=== PATIENT | female | born 1965 | race Caucasian/White ===

== ENCOUNTER 2017-09-05 13:21 | Observation (INO) | payer MEDICAID ==
[~2017-09-05] VITALS: Ht 160 cm; Wt 72.2 kg
[~2017-09-05 13:21] MED LIST: ATOR20TA66 PO; HYDR-3972 PO; HYDR12.5 PO; LOSA50TA37 PO; XYL25J TOP
[2017-09-05 14:01] LABS: BASOPHILS # (AUTO) 0.1 X10'3 (0-0.2); BASOPHILS % (AUTO) 0.6 % (0-1); EOSINOPHILS # (AUTO) 0.3 X10'3 (0-0.9); EOSINOPHILS % (AUTO) 2.9 % (0-6); HEMATOCRIT 43.4 % (35.0-45.0); HEMOGLOBIN 15.2 g/dl (12.0-16.0); LYMPHOCYTES # (AUTO) 2.4 X10'3 (1.1-4.8); LYMPHOCYTES % (AUTO) 24.7 % (21-51); MEAN CORPUSCULAR HEMOGLOBIN 31.7 PG (27.0-31.0); MEAN CORPUSCULAR HGB CONC 34.9 % (33.0-36.5); MEAN CORPUSCULAR VOLUME 90.9 FL (78-98); MEAN PLATELET VOLUME 7.6 FL (7.4-10.4); MONOCYTES # (AUTO) 0.4 X10'3 (0-0.9); MONOCYTES % (AUTO) 4.6 % (2-12); NEUTROPHILS # (AUTO) 6.4 X10'3 (1.8-7.7); NEUTROPHILS % (AUTO) 67.2 % (42-75); PLATELET COUNT 369 X10'3 (140-440); RED BLOOD COUNT 4.78 X10'6 (4.20-5.60); RED CELL DISTRIBUTION WIDTH 13.9 % (11.5-14.5); WHITE BLOOD COUNT 9.6 X10'3 (4.5-11.0)
[2017-09-05 14:16] LABS: ALANINE AMINOTRANSFERASE 28 U/L (12-78); ALBUMIN 3.5 G/DL (3.4-5.0); ALBUMIN/GLOBULIN RATIO 0.8 (1.1-1.5); ALKALINE PHOSPHATASE 86 IU/L (46-116); ANION GAP 8 (8-16); ASPARTATE AMINO TRANSFERASE 9 U/L (10-37); BILIRUBIN,TOTAL 0.9 MG/DL (0.1-1.0); BLOOD UREA NITROGEN 6 MG/DL (7-18); BUN/CREATININE RATIO 7.9 (6.6-38.0); CALCIUM 9.4 MG/DL (8.5-10.1); CHLORIDE 96 MMOL/L (99-107); CREATININE 0.76 MG/DL (0.40-0.90); GLUCOSE 97 MG/DL (70-104); LIPASE 86 U/L (73-393); POTASSIUM 3.3 MMOL/L (3.5-5.1); SODIUM 136 MMOL/L (135-145); TOTAL CARBON DIOXIDE 32.4 MMOL/L (24-32); TOTAL PROTEIN 7.7 G/DL (6.4-8.2); eGFR 80 ML/MIN
[2017-09-05] MEDS ORDERED: iohexol 300mg/ml 100ml inj. ONE (14:44)
[2017-09-05 14:58] LABS: CLARITY,URINE CLEAR (Clear); COLOR,URINE STRAW (Yellow); GLUCOSE, URINE NEGATIVE (Neg); KETONES,URINE NEGATIVE (Neg); LEUKOCYTE ESTERASE ,URINE TRACE (Neg); NITRITES, URINE NEGATIVE (Neg); OCCULT BLOOD,URINE TRACE-INTACT (Neg); PH,URINE 6.5 (4.8-8.0); PROTEIN,URINE NEGATIVE (Neg); UA COLLECTION TYPE CLN CATCH MIDSTREAM; UROBILINOGEN,URINE 0.2 E.U/dL (0.2-1.0)
[2017-09-05 15:05] LABS: BACTERIA,URINE 1+ /HPF (Neg); RBC,URINE 0-2 /HPF (0-2); SQUAMOUS EPITHELIAL CELL,UR MODERATE /LPF (FEW); WBC,URINE 0-4 /HPF (0-4)
[2017-09-05 15:06] LABS: TRANSITIONAL EPI CELLS,URINE FEW /HPF
[2017-09-05] MEDS ORDERED: normal saline 1000ml 1,000 ML IV ONE ×2 (15:45)
[2017-09-05] MEDS ORDERED: sodium chloride 0.45% 1,000 ML IV SCH (17:24)
[2017-09-05] MEDS ORDERED: ondansetron/PF 4mg/2ml inj IV PRN (17:25)
[2017-09-05] MEDS ORDERED: magnesium hydroxide 30ml (MOM) UD suspension PO PRN (17:25)
[2017-09-05] MEDS ORDERED: mag hydrox/Alum hydrox/simeth 30ml oral suspension PO PRN (17:25)
[2017-09-05] MEDS ORDERED: acetaminophen 325mg tablet PO PRN (17:25)
[2017-09-05] MEDS ORDERED: magnesium hydroxide 30ml (MOM) UD suspension PO ONE (17:25)
[2017-09-05] MEDS: ketorolac trometh. 30mg/ml inj. IV SCH ×2 (18:14→20:00)
[2017-09-05] MEDS: HYDROcodone/acetaminophen 5mg/325mg tablet PO PRN ×2 (18:14→23:41)
[2017-09-05] MEDS: heparin, porcine 5000 units/ml vial SQ SCH (19:52)
[2017-09-05 20:30] VITALS: BP 154/73
[2017-09-05] MEDS: ringers solution, lacted 1,000 ML IV SCH (21:19)
[2017-09-05] MEDS: ciprofloxacin lact 400MG/200ML 200 ML IV SCH (22:21)
[2017-09-06] VITALS: BP 96/63
[2017-09-06] MEDS: ketorolac trometh. 30mg/ml inj. IV SCH ×3 (01:45→13:28)
[2017-09-06] MEDS: ringers solution, lacted 1,000 ML IV SCH ×2 (04:52→10:36)
[2017-09-06 06:00] LABS: BASOPHILS # (AUTO) 0.1 X10'3 (0-0.2); BASOPHILS % (AUTO) 1.5 % (0-1); EOSINOPHILS # (AUTO) 0.3 X10'3 (0-0.9); EOSINOPHILS % (AUTO) 4.6 % (0-6); HEMATOCRIT 40.4 % (35.0-45.0); HEMOGLOBIN 14.1 g/dl (12.0-16.0); LYMPHOCYTES # (AUTO) 2.9 X10'3 (1.1-4.8); LYMPHOCYTES % (AUTO) 38.1 % (21-51); MEAN CORPUSCULAR HEMOGLOBIN 31.8 PG (27.0-31.0); MEAN CORPUSCULAR VOLUME 90.7 FL (78-98); MEAN PLATELET VOLUME 7.9 FL (7.4-10.4); MONOCYTES # (AUTO) 0.4 X10'3 (0-0.9); MONOCYTES % (AUTO) 5.5 % (2-12); NEUTROPHILS # (AUTO) 3.8 X10'3 (1.8-7.7); NEUTROPHILS % (AUTO) 50.3 % (42-75); PLATELET COUNT 308 X10'3 (140-440); RED BLOOD COUNT 4.45 X10'6 (4.20-5.60); RED CELL DISTRIBUTION WIDTH 14.4 % (11.5-14.5); WHITE BLOOD COUNT 7.5 X10'3 (4.5-11.0)
[2017-09-06 06:26] LABS: ALBUMIN 3.2 G/DL (3.4-5.0); ANION GAP 7 (8-16); BLOOD UREA NITROGEN 7 MG/DL (7-18); CALCIUM 9.1 MG/DL (8.5-10.1); CHLORIDE 103 MMOL/L (99-107); CREATININE 0.88 MG/DL (0.40-0.90); GLUCOSE 91 MG/DL (70-104); POTASSIUM 3.6 MMOL/L (3.5-5.1); SODIUM 141 MMOL/L (135-145); TOTAL CARBON DIOXIDE 30.6 MMOL/L (24-32); eGFR 67 ML/MIN
[2017-09-06 06:30] VITALS: BP 144/78
[2017-09-06] MEDS: ciprofloxacin lact 400MG/200ML 200 ML IV SCH (07:07)
[2017-09-06] MEDS: heparin, porcine 5000 units/ml vial SQ SCH (07:08)
[2017-09-06] MEDS: HYDROcodone/acetaminophen 5mg/325mg tablet PO PRN (07:12)
[2017-09-06] MEDS ORDERED: losartan 50mg tablet PO SCH (08:00)
[2017-09-06] MEDS ORDERED: magnesium hydroxide 30ml (MOM) UD suspension PO ONE (10:30)
[2017-09-06 11:15] VITALS: BP 120/70
[2017-09-06] MEDS ORDERED: HYDR-569 PO (13:40)
== END 2017-09-06 14:13 | disposition home or self-care (01) ==
LOC: ER 13:21 → ED HOLD 17:29 → MED 3N 19:20
PROVIDERS: ADMIT Surgery; ATTEND Surgery
DX: K59.00 Constipation, unspecified (principal); R10.9 Unspecified abdominal pain; E78.00 Pure hypercholesterolemia, unspecified; I10 Essential (primary) hypertension; K56.7 Ileus, unspecified; J45.909 Unspecified asthma, uncomplicated; G89.18 Other acute postprocedural pain; K91.89 Other postprocedural complications and disorders of digestive system; Z72.0 Tobacco use
CPT/HCPCS: 36415; 74177; 80048; 80053; 81001; 83690; 85025; 87070; 87088; 96361; 96365; 96372; 96375; 96376; 99285; G0378; J0744; J1644; J1885; J7030; J7120; Q9967

== ENCOUNTER 2017-12-09 08:45 | Day surgery (SDC) | payer MEDICAID ==
[~2017-12-09] VITALS: Ht 162.6 cm; Wt 77.3 kg
[~2017-12-09 08:45] MED LIST changes: -ATOR20TA66 PO; -HYDR-3972 PO; +HYDR-569 PO; -XYL25J TOP
[2017-12-09 08:47] VITALS: BP 120/76
[2017-12-09] MEDS ORDERED: HYDR-3965 PO (08:51)
[2017-12-09] MEDS ORDERED: fentaNYL/PF 50MCG/1 ML 2ML syringe ONE (09:09)
[2017-12-09] MEDS ORDERED: MIDAZolam 5mg/5ml vial ONE (09:09)
[2017-12-09 09:52] VITALS: BP 93/56
[2017-12-09 10:02] VITALS: BP 93/56
[2017-12-09 10:12] VITALS: BP 94/57
[2017-12-09 10:17] VITALS: BP 105/62
== END 2017-12-09 10:36 | disposition home or self-care (01) ==
LOC: GI LAB 08:45
PROVIDERS: ATTEND Internal Medicine Gastroenterology
DX: Z08 Encounter for follow-up examination after completed treatment for malignant neoplasm (principal); K62.1 Rectal polyp; K64.8 Other hemorrhoids; K57.30 Diverticulosis of large intestine without perforation or abscess without bleeding; I10 Essential (primary) hypertension; F17.210 Nicotine dependence, cigarettes, uncomplicated; M16.0 Bilateral primary osteoarthritis of hip; M47.816 Spondylosis without myelopathy or radiculopathy, lumbar region; E78.00 Pure hypercholesterolemia, unspecified; G89.29 Other chronic pain; J45.998 Other asthma; Z86.010 Personal history of colon polyps; Z98.0 Intestinal bypass and anastomosis status; Z85.038 Personal history of other malignant neoplasm of large intestine; Z90.49 Acquired absence of other specified parts of digestive tract; Z91.018 Allergy to other foods; Z79.891 Long term (current) use of opiate analgesic; Z79.899 Other long term (current) drug therapy; Z98.890 Other specified postprocedural states
CPT/HCPCS: 45380; 99152; J2250; J3010; J7030; A4620; G0500

== ENCOUNTER 2018-12-22 12:10 | Inpatient (IN) | payer MEDICAID ==
[~2018-12-22] VITALS: Ht 160 cm; Wt 90.9 kg
[~2018-12-22 12:10] MED LIST changes: +HYDR-3965 PO; -HYDR-569 PO; -LOSA50TA37 PO; +LOSA50TA64 PO
[2018-12-22] MEDS ORDERED: LIDOcaine 1% w/epiNEPHrine 1:200,000 30ml vial IM ONE (14:20)
[2018-12-22] MEDS ORDERED: morphine 4 MG/ML inj SYRINge IV ONE (14:20)
[2018-12-22] MEDS ORDERED: vancomycin/NS 1 GM ADD-VANTAGE 250 ML IV ONE (14:20)
[2018-12-22 14:49] LABS: BASOPHILS % (AUTO) 1.2 % (0-1); EOSINOPHILS # (AUTO) 0.1 X10'3 (0-0.9); MEAN PLATELET VOLUME 7.5 FL (7.4-10.4); MONOCYTES # (AUTO) 0.6 X10'3 (0-0.9)
[2018-12-22 14:50] LABS: BASOPHILS # (AUTO) 0.2 X10'3 (0-0.2); HEMATOCRIT 43.2 % (35.0-45.0); HEMOGLOBIN 15.3 g/dl (12.0-16.0); LYMPHOCYTES # (AUTO) 2.6 X10'3 (1.1-4.8); LYMPHOCYTES % (AUTO) 20.7 % (21-51); MEAN CORPUSCULAR HGB CONC 35.4 g/dL (33.0-36.5); MEAN CORPUSCULAR VOLUME 87.5 FL (78-98); MONOCYTES % (AUTO) 5.1 % (2-12); NEUTROPHILS # (AUTO) 9.2 X10'3 (1.8-7.7); PLATELET COUNT 328 X10'3 (140-440); RED BLOOD COUNT 4.94 X10'6 (4.20-5.60); RED CELL DISTRIBUTION WIDTH 13.6 % (11.5-14.5); WHITE BLOOD COUNT 12.7 X10'3 (4.5-11.0)
[2018-12-22 15:01] LABS: ALANINE AMINOTRANSFERASE 21 U/L (12-78); ALBUMIN 3.6 G/DL (3.4-5.0); ALBUMIN/GLOBULIN RATIO 0.8 (1.1-1.5); ALKALINE PHOSPHATASE 103 IU/L (46-116); ANION GAP 8 (8-16); ASPARTATE AMINO TRANSFERASE 9 U/L (10-37); BILIRUBIN,TOTAL 0.5 MG/DL (0.1-1.0); BLOOD UREA NITROGEN 6 MG/DL (7-18); BUN/CREATININE RATIO 7.5 (6.6-38.0); C-REACTIVE PROTEIN 0.83 MG/DL (0.0-0.5); CALCIUM 9.1 MG/DL (8.5-10.1); CHLORIDE 94 MMOL/L (99-107); GLUCOSE 99 MG/DL (70-104); SODIUM 130 MMOL/L (135-145); eGFR 75 ML/MIN
[2018-12-22 15:10] LABS: POTASSIUM 2.9 MMOL/L (3.5-5.1)
[2018-12-22] MEDS ORDERED: potassium Cl 20 mEq SR tablet PO PRN ×2 (16:45)
[2018-12-22] MEDS ORDERED: morphine 2 MG/ML inj. syringe IV PRN (16:45)
[2018-12-22] MEDS ORDERED: magnesium 2GM in 50ml NS 50 ML IV PRN (16:45)
[2018-12-22] MEDS ORDERED: potassium Cl 40MEQ/NS 500ml 500 ML IV PRN (16:45)
[2018-12-22] MEDS: K and/or MAG REPLACEMENT MC SCH (16:45)
[2018-12-22] MEDS ORDERED: potassium CL 10mEq/100ml bag 100 ML IV PRN (16:45)
[2018-12-22] MEDS ORDERED: magnesium 4gm in 100ml NS 100 ML IV PRN (16:45)
[2018-12-22] MEDS ORDERED: magnesium Cl slow-release 64mg tablet PO PRN (16:45)
[2018-12-22] MEDS ORDERED: mag hydrox/Alum hydrox/simeth 30ml oral suspension PO PRN (16:45)
[2018-12-22] MEDS ORDERED: bisacodyl 10mg suppository rectal RC PRN (16:45)
[2018-12-22] MEDS: losartan 50mg tablet PO SCH (16:50)
[2018-12-22] MEDS ORDERED: traMADol 50MG tablet PO PRN (16:50)
[2018-12-22 18:03] LABS: MAGNESIUM 2.1 MG/DL (1.5-2.4)
--- NOTE | 2018-12-22 18:31 | NUR ---
Patient in room . I have received report from Renee HENDERSON and had the opportunity to ask questions and assume patient care.
--- NOTE | 2018-12-22 18:40 | NUR ---
REPORT CALLED TO BEATRIZ DOLAN ON SURGICAL UNIT. PATIENT TAKEN TO FLOOR WITH PORTABLE MONITOR INTACT, IN GOOD CONDITION, ACCOMPANIED BY DAUGHTER.
[2018-12-22] MEDS: potassium Cl 20mEq in NS 1,000 ML IV SCH ×2 (18:41→19:14)
[2018-12-22 19:00] VITALS: BP 169/88
--- NOTE | 2018-12-22 19:00 | NUR ---
Patient arrived at floor via gurney accompanied by nurse and daughter.
[2018-12-22] MEDS: levoFLOXACIN-Levaquin 500mg/D5 100 ML IV SCH (19:15)
[2018-12-22] MEDS: docusate sod 100mg capsule PO SCH (19:16)
[2018-12-22] MEDS: morphine 2 MG/ML inj. syringe IV PRN (20:51)
[2018-12-22] MEDS: VANCOmycin 1250MG/NS 250ml Bag 250 ML IV SCH (22:17)
--- NOTE | 2018-12-22 23:52 | NUR ---
Student documentation: I have reviewed and agree with all interventions, assessments performed and documented by BEATRIZ Silva. Addendum: 12/22/18 at 2353 by Liberty Badillo RN Amended: Links added.
[2018-12-23 00:42] VITALS: BP 107/64
[2018-12-23] MEDS: morphine 2 MG/ML inj. syringe IV PRN ×3 (02:39→21:26)
[2018-12-23] MEDS ORDERED: vancomycin/NS 1 GM ADD-VANTAGE 250 ML IV SCH (03:00)
[2018-12-23 05:02] LABS: BASOPHILS # (AUTO) 0.1 X10'3 (0-0.2); BASOPHILS % (AUTO) 0.8 % (0-1); EOSINOPHILS # (AUTO) 0.1 X10'3 (0-0.9); EOSINOPHILS % (AUTO) 1.7 % (0-6); HEMATOCRIT 37.7 % (35.0-45.0); LYMPHOCYTES # (AUTO) 2.3 X10'3 (1.1-4.8); LYMPHOCYTES % (AUTO) 33.4 % (21-51); MEAN CORPUSCULAR HEMOGLOBIN 30.4 PG (27.0-31.0); MEAN CORPUSCULAR HGB CONC 34.5 g/dL (33.0-36.5); MEAN CORPUSCULAR VOLUME 88.1 FL (78-98); MEAN PLATELET VOLUME 7.8 FL (7.4-10.4); MONOCYTES # (AUTO) 0.5 X10'3 (0-0.9); MONOCYTES % (AUTO) 7.4 % (2-12); NEUTROPHILS # (AUTO) 3.9 X10'3 (1.8-7.7); NEUTROPHILS % (AUTO) 56.7 % (42-75); PLATELET COUNT 306 X10'3 (140-440); RED BLOOD COUNT 4.28 X10'6 (4.20-5.60); RED CELL DISTRIBUTION WIDTH 14.1 % (11.5-14.5); WHITE BLOOD COUNT 6.9 X10'3 (4.5-11.0)
[2018-12-23 05:04] LABS: ALBUMIN 2.7 G/DL (3.4-5.0); ANION GAP 8 (8-16); BLOOD UREA NITROGEN 6 MG/DL (7-18); BUN/CREATININE RATIO 7.6 (6.6-38.0); CALCIUM 8.1 MG/DL (8.5-10.1); CHLORIDE 102 MMOL/L (99-107); CREATININE 0.79 MG/DL (0.40-0.90); GLUCOSE 101 MG/DL (70-104); MAGNESIUM 1.9 MG/DL (1.5-2.4); POTASSIUM 3.5 MMOL/L (3.5-5.1); SODIUM 135 MMOL/L (135-145); TOTAL CARBON DIOXIDE 25.1 MMOL/L (24-32); eGFR 76 ML/MIN
--- NOTE | 2018-12-23 06:24 | NUR ---
Problems reprioritized. Patient report given, questions answered & plan of care reviewed with Ana Maria HENDERSON.
[2018-12-23 07:00] VITALS: BP 138/78
[2018-12-23] MEDS: docusate sod 100mg capsule PO SCH ×2 (08:00→20:00)
[2018-12-23] MEDS: K and/or MAG REPLACEMENT MC SCH (08:00)
[2018-12-23] MEDS: magnesium hydroxide 30ml (MOM) UD suspension PO PRN (08:54)
[2018-12-23] MEDS: losartan 50mg tablet PO SCH (08:57)
[2018-12-23] MEDS: enoxaparin 40mg/0.4ml syringe SUBCUT SCH (08:58)
[2018-12-23] MEDS: nicotine 21mg patch - 24 hr TD SCH (09:00)
[2018-12-23] MEDS: levoFLOXACIN-Levaquin 500mg/D5 100 ML IV SCH (09:15)
[2018-12-23] MEDS: VANCOmycin 1250MG/NS 250ml Bag 250 ML IV SCH ×2 (11:00→22:36)
[2018-12-23] MEDS ORDERED: levoFLOXACIN 500mg tablet PO SCH (11:00)
[2018-12-23 12:00] VITALS: BP 152/83
[2018-12-23] MEDS: potassium Cl 20mEq in NS 1,000 ML IV SCH (13:02)
[2018-12-23] MEDS ORDERED: gadopentetate dimeglumine 10 MMOL/20 ML syringe IV ONE (14:01)
--- NOTE | 2018-12-23 18:30 | NUR ---
Patient in room WES 341. I have received report from OMEGA HENDERSON and had the opportunity to ask questions and assume patient care.
[2018-12-23 20:00] VITALS: BP 156/90
[2018-12-23] MEDS: lactobacillus rhamnosus 10,000 MMU CELLS/CAPSULE PO SCH (21:25)
[2018-12-24] VITALS: BP 140/76
[2018-12-24] MEDS: morphine 2 MG/ML inj. syringe IV PRN ×5 (01:32→19:58)
[2018-12-24 05:16] LABS: BASOPHILS # (AUTO) 0.1 X10'3 (0-0.2); EOSINOPHILS # (AUTO) 0.1 X10'3 (0-0.9); EOSINOPHILS % (AUTO) 1.9 % (0-6); HEMATOCRIT 35.2 % (35.0-45.0); HEMOGLOBIN 12.3 g/dl (12.0-16.0); LYMPHOCYTES # (AUTO) 2.7 X10'3 (1.1-4.8); LYMPHOCYTES % (AUTO) 42.3 % (21-51); MEAN CORPUSCULAR HEMOGLOBIN 31.2 PG (27.0-31.0); MEAN CORPUSCULAR HGB CONC 34.9 g/dL (33.0-36.5); MEAN CORPUSCULAR VOLUME 89.3 FL (78-98); MEAN PLATELET VOLUME 7.9 FL (7.4-10.4); MONOCYTES # (AUTO) 0.4 X10'3 (0-0.9); NEUTROPHILS # (AUTO) 3.1 X10'3 (1.8-7.7); NEUTROPHILS % (AUTO) 48.8 % (42-75); PLATELET COUNT 276 X10'3 (140-440); RED BLOOD COUNT 3.94 X10'6 (4.20-5.60); RED CELL DISTRIBUTION WIDTH 14.3 % (11.5-14.5); WHITE BLOOD COUNT 6.4 X10'3 (4.5-11.0)
[2018-12-24] MEDS: potassium Cl 20mEq in NS 1,000 ML IV SCH ×2 (05:38→17:38)
[2018-12-24 05:39] LABS: ALBUMIN 2.6 G/DL (3.4-5.0); ANION GAP 7 (8-16); BLOOD UREA NITROGEN 7 MG/DL (7-18); BUN/CREATININE RATIO 8.3 (6.6-38.0); CHLORIDE 105 MMOL/L (99-107); CREATININE 0.84 MG/DL (0.40-0.90); GLUCOSE 89 MG/DL (70-104); MAGNESIUM 1.9 MG/DL (1.5-2.4); POTASSIUM 3.8 MMOL/L (3.5-5.1); SODIUM 136 MMOL/L (135-145); TOTAL CARBON DIOXIDE 23.6 MMOL/L (24-32); eGFR 71 ML/MIN
--- NOTE | 2018-12-24 06:24 | NUR ---
Problems reprioritized. Patient report given, questions answered & plan of care reviewed with MIKALA HENDERSON.
[2018-12-24] MEDS: K and/or MAG REPLACEMENT MC SCH (06:37)
[2018-12-24 07:00] VITALS: BP 114/68
--- NOTE | 2018-12-24 07:00 | NUR ---
Patient in room WES 341. I have received report from CALLUM and had the opportunity to ask questions and assume patient care. Addendum: 12/24/18 at 0915 by Charleen Kumari RN Amended: Links added.
[2018-12-24] MEDS: docusate sod 100mg capsule PO SCH ×2 (07:09→20:00)
[2018-12-24] MEDS: enoxaparin 40mg/0.4ml syringe SUBCUT SCH (07:20)
[2018-12-24] MEDS: magnesium hydroxide 30ml (MOM) UD suspension PO PRN (07:20)
[2018-12-24] MEDS: losartan 50mg tablet PO SCH (07:20)
[2018-12-24] MEDS: lactobacillus rhamnosus 10,000 MMU CELLS/CAPSULE PO SCH ×2 (07:20→20:01)
[2018-12-24] MEDS: nicotine 21mg patch - 24 hr TD SCH ×2 (07:20→08:00)
[2018-12-24] MEDS ORDERED: levoFLOXACIN-Levaquin 500mg/D5 100 ML IV SCH (08:00)
[2018-12-24] MEDS ORDERED: VANCOMYCIN LEVEL IV ONE (09:30)
--- NOTE | 2018-12-24 10:03 | NUR ---
Report to Angela HENDERSON. Addendum: 12/24/18 at 1004 by Charleen Kumari RN Amended: Links added.
[2018-12-24] MEDS ORDERED: levoFLOXACIN 500mg tablet PO SCH (11:00)
[2018-12-24] MEDS: VANCOmycin 1250MG/NS 250ml Bag 250 ML IV SCH ×2 (11:17→21:58)
[2018-12-24] MEDS: HYDROchlorothiazide 12.5mg capsule PO SCH (11:25)
[2018-12-24 12:03] VITALS: BP 120/85
[2018-12-24] MEDS: acetaminophen 325mg tablet PO PRN ×2 (13:07→20:01)
--- NOTE | 2018-12-24 13:39 | NUR ---
RECOMMEND: 1. Daily bathing with no rinse skin cleanser. 2. Cream/Lotion to be applied to skin after bathing. 3. Zulay care Q shift and prn soiling followed by with Barrier Cream. 4. Turn patient Q 1-2 hrs and reposition with pillows. 5. Float heels to offload pressure. Right 5th metatarsal head surgical wound; Cleanse with wound cleanser, rinse with saline, lightly pack with 1/4 inch iodaform packing strip, cover with dry gauze and secure with gauze roll DAILY and PRN soilage or saturation. Addendum: 12/24/18 at 1341 by Long Sánchez RN Amended: Links added.
[2018-12-24 18:00] VITALS: BP 150/83
--- NOTE | 2018-12-24 18:20 | NUR ---
Patient in room WES 341. I have received report from Juan Miller and had the opportunity to ask questions and assume patient care.
[2018-12-25] VITALS: BP 155/78
[2018-12-25] MEDS: morphine 2 MG/ML inj. syringe IV PRN ×4 (00:10→21:44)
[2018-12-25] MEDS: potassium Cl 20mEq in NS 1,000 ML IV SCH (03:00)
[2018-12-25] MEDS: acetaminophen 325mg tablet PO PRN ×3 (03:00→20:14)
--- NOTE | 2018-12-25 06:28 | NUR ---
Problems reprioritized. Patient report given, questions answered & plan of care reviewed with BEATRIZ Dexter.
[2018-12-25 07:00] VITALS: BP 155/77
[2018-12-25] MEDS: K and/or MAG REPLACEMENT MC SCH (08:00)
[2018-12-25] MEDS: lactobacillus rhamnosus 10,000 MMU CELLS/CAPSULE PO SCH ×2 (08:43→20:00)
[2018-12-25] MEDS: docusate sod 100mg capsule PO SCH ×2 (08:45→20:00)
[2018-12-25] MEDS: losartan 50mg tablet PO SCH (08:45)
[2018-12-25] MEDS: HYDROchlorothiazide 12.5mg capsule PO SCH (08:46)
[2018-12-25] MEDS: enoxaparin 40mg/0.4ml syringe SUBCUT SCH (08:47)
[2018-12-25] MEDS: nicotine 21mg patch - 24 hr TD SCH (08:48)
[2018-12-25 09:13] LABS: BASOPHILS # (AUTO) 0.1 X10'3 (0-0.2); BASOPHILS % (AUTO) 1.5 % (0-1); EOSINOPHILS # (AUTO) 0.1 X10'3 (0-0.9); EOSINOPHILS % (AUTO) 2.4 % (0-6); HEMATOCRIT 38.7 % (35.0-45.0); HEMOGLOBIN 13.2 g/dl (12.0-16.0); LYMPHOCYTES # (AUTO) 2.2 X10'3 (1.1-4.8); LYMPHOCYTES % (AUTO) 38.2 % (21-51); MEAN CORPUSCULAR HEMOGLOBIN 30.5 PG (27.0-31.0); MEAN CORPUSCULAR HGB CONC 34.2 g/dL (33.0-36.5); MEAN CORPUSCULAR VOLUME 89.2 FL (78-98); MONOCYTES # (AUTO) 0.3 X10'3 (0-0.9); MONOCYTES % (AUTO) 4.9 % (2-12); NEUTROPHILS # (AUTO) 3.1 X10'3 (1.8-7.7); PLATELET COUNT 281 X10'3 (140-440); RED BLOOD COUNT 4.34 X10'6 (4.20-5.60); RED CELL DISTRIBUTION WIDTH 14.1 % (11.5-14.5); WHITE BLOOD COUNT 5.8 X10'3 (4.5-11.0)
[2018-12-25 09:30] LABS: ALBUMIN 3.2 G/DL (3.4-5.0); ANION GAP 8 (8-16); BLOOD UREA NITROGEN 8 MG/DL (7-18); BUN/CREATININE RATIO 8.5 (6.6-38.0); CALCIUM 9.6 MG/DL (8.5-10.1); CHLORIDE 105 MMOL/L (99-107); CREATININE 0.94 MG/DL (0.40-0.90); GLUCOSE 125 MG/DL (70-104); POTASSIUM 3.9 MMOL/L (3.5-5.1); SODIUM 135 MMOL/L (135-145); TOTAL CARBON DIOXIDE 21.6 MMOL/L (24-32); eGFR 62 ML/MIN
[2018-12-25] MEDS: VANCOmycin 1250MG/NS 250ml Bag 250 ML IV SCH ×2 (10:00→10:57)
[2018-12-25 11:26] VITALS: BP 171/94
--- NOTE | 2018-12-25 11:27 | NUR ---
MD aware of 171/94 Bp. New order to SL pt. fluids and continue to monitor pt. BP
[2018-12-25] MEDS ORDERED: ethyl chloride 103.5ml spray TP PRN (11:30)
[2018-12-25] MEDS ORDERED: ACET-3068 PO (14:25)
--- NOTE | 2018-12-25 15:01 | NUR ---
PAGER ID: [phone] MESSAGE: [phone] YAKOV HEMPHILL ORDERED PT EVAL FOR WALKER. CANE AND SCOOTER NOT APPROVED BY INSURANCE. DIET CONSULT FOR WOUND. [place] STATES STILL WAITING APPROVAL FOR ATB SO DISCHARGE POSTPONED AT THIS MOMENT. ETELVINA 1500
[2018-12-25 16:30] VITALS: BP 200/97
--- NOTE | 2018-12-25 16:56 | NUR ---
PAGER ID: [phone] MESSAGE: [phone] Holly Rivas Pt. met with pt. Needs prescription for scooter to be able to rent. Guerita [phone]
[2018-12-25 18:00] VITALS: BP 187/94
--- NOTE | 2018-12-25 18:04 | NUR ---
MD notified about BP. No tele calls. pt. asymptomatic. stated better to give the pt. some time for BP to come down. He is thinking the high BP is from fluids. Will pass on in report and continue to monitor on my shift.
--- NOTE | 2018-12-25 19:00 | NUR ---
Patient in room WES 341. I have received report from BEATRIZ Dexter and had the opportunity to ask questions and assume patient care.
--- NOTE | 2018-12-25 19:17 | NUR ---
Missed dose of Vancomycin r/t multiple procedures in room and pt. showering. Pt.'s BP also 200/ 97 r/t fluid overload. Called Alva to clarify what to do with missed dose. Alva did not advice holding ABT. dose due to fluid overload. Stated to call pharmacy to see what to do about missed dose. Pharmacy called, they suggested giving the pt. her 10 o'clock dose of Vanco early. Will pass on in report.
--- NOTE | 2018-12-25 22:24 | NUR ---
Patient discharged home with d/c paperwork. Educated on wound and medications, f/u with Dr. Pierce. Pt will call. Wheeled out with all belongings, father driving pt home.
== END 2018-12-25 22:15 | disposition home or self-care (01) | DRG 721 ==
LOC: ER 12:10 → SUR 3N 19:05 → CMPBEDREQ 19:41
PROVIDERS: ADMIT Internal Medicine; ATTEND Family Medicine
PROC: 0Y9M0ZZ Drainage of Right Foot, Open Approach (ICD-10-PCS; principal; 2018-12-22)
PROC: BQ3DYZZ Magnetic Resonance Imaging (MRI) of Right Lower Leg using Other Contrast (ICD-10-PCS; 2018-12-22)
PROC: 02HV33Z Insertion of Infusion Device into Superior Vena Cava, Percutaneous Approach (ICD-10-PCS; 2018-12-25)
PROC: 4A02X4A Measurement of Cardiac Electrical Activity, Guidance, External Approach (ICD-10-PCS; 2018-12-25)
PROC: B548ZZA Ultrasonography of Superior Vena Cava, Guidance (ICD-10-PCS; 2018-12-25)
DX: T81.49XA Infection following a procedure, other surgical site, initial encounter (principal); E87.1 Hypo-osmolality and hyponatremia; L03.115 Cellulitis of right lower limb; E87.6 Hypokalemia; I10 Essential (primary) hypertension; J45.909 Unspecified asthma, uncomplicated; F17.210 Nicotine dependence, cigarettes, uncomplicated; Z60.2 Problems related to living alone; L02.611 Cutaneous abscess of right foot; M86.8X7 Other osteomyelitis, ankle and foot; G89.29 Other chronic pain; Y83.8 Other surgical procedures as the cause of abnormal reaction of the patient, or of later complication, without mention of misadventure at the time of the procedure; Z88.5 Allergy status to narcotic agent; Z91.018 Allergy to other foods; Z71.6 Tobacco abuse counseling; Z79.899 Other long term (current) drug therapy; Y92.89 Other specified places as the place of occurrence of the external cause
CPT/HCPCS: 10060; 36415; 36569; 71045; 73630; 73723; 76937; 80048; 80053; 80202; 83735; 85025; 85651; 86140; 87040; 87070; 96365; 96375; 97116; 97162; 97530; 99285; A9579; G0378; J1650; J1956; J2270; J3370; J3490

== ENCOUNTER 2018-12-29 09:00 | Day surgery (SDC) | payer MEDICAID ==
[~2018-12-29 09:00] MED LIST changes: +ACET-3068 PO; -HYDR-3965 PO
[2018-12-29] MEDS ORDERED: LIDOcaine/PRILOcaine 5gm cream TP ONE (09:37)
[2018-12-29] MEDS ORDERED: HYDR-4353 PO (09:56)
[2018-12-29] MEDS ORDERED: VANC1VIA21 IV (09:56)
[2018-12-29] MEDS ORDERED: CETI-102 PO (09:56)
--- NOTE | 2018-12-29 11:00 | NUR ---
Patient arrived with knee scooter from [facility] and was admitted to outpatient wound care for physician visit with Joye Bowman MD. Dressing removed, wound cleansed. New patient assessment completed with review of patient's medical history and current medications. 1000 - Dr. Bowman at bedside accompanied by RN. Wound assessed, time out performed by MD/RN. Wound debrided as detailed in the physician progress/procedure note. Plan of care discussed with patient. Dressings placed per MD orders. Patient instructed on the signs and symptoms of infection and to call the Wound Center if any occur or to go to the ED if we are closed: Increased pain in wound Increase in drainage from the wound Redness in the skin surrounding the wound Bleeding from the wound Temperature of 101 or greater Patient instructed that the weight of their body puts a large amount of pressure on their wounds. This pressure keeps the new tissue from growing and inhibits new blood vessels from forming. Explained that, if they continue to bear weight on a body part that has a wound, the time it takes to heal the wound increases, the wound may get worse or the wound may not heal at all. Patient verbalized understanding of all discharge instructions and plan of care and exited using knee scooter independently out to [facility] in stable condition with no sign or symptom of distress at time of discharge.
== END 2018-12-29 10:54 | disposition home or self-care (01) ==
LOC: WOUND CARE 09:00
PROVIDERS: ATTEND Surgery
DX: T81.89XD Other complications of procedures, not elsewhere classified, subsequent encounter (principal); L97.514 Non-pressure chronic ulcer of other part of right foot with necrosis of bone; M86.171 Other acute osteomyelitis, right ankle and foot; J44.9 Chronic obstructive pulmonary disease, unspecified; I10 Essential (primary) hypertension; I73.9 Peripheral vascular disease, unspecified; E87.6 Hypokalemia; E78.00 Pure hypercholesterolemia, unspecified; E78.5 Hyperlipidemia, unspecified; F10.10 Alcohol abuse, uncomplicated; F17.210 Nicotine dependence, cigarettes, uncomplicated; F19.10 Other psychoactive substance abuse, uncomplicated; Z85.038 Personal history of other malignant neoplasm of large intestine; Z85.828 Personal history of other malignant neoplasm of skin; Z68.31 Body mass index [BMI] 31.0-31.9, adult; Y83.8 Other surgical procedures as the cause of abnormal reaction of the patient, or of later complication, without mention of misadventure at the time of the procedure
CPT/HCPCS: 97597; A6021; A6206; A6212; A6446

== ENCOUNTER 2019-01-05 09:00 | Day surgery (SDC) | payer MEDICAID ==
[~2019-01-05 09:00] MED LIST changes: -ACET-3068 PO; +CETI-102 PO; +HYDR-4353 PO; +VANC1VIA21 IV
--- NOTE | 2019-01-05 14:00 | NUR ---
Patient ambulated independently from [facility] and was admitted to outpatient wound care for physician visit with Joey Bowman MD. Dressing removed, wound cleansed and lidocaine applied per order. Patient assessed for changes in conditions, medications and medical history. Dr. Bowman at bedside accompanied by RN. Wound assessed, time out performed by MD/RN. Wound debrided as detailed in the physician progress/procedure note. Plan of care discussed with patient. Dressings placed per MD orders. Patient instructed on the signs and symptoms of infection and to call the Wound Center if any occur or to go to the ED if we are closed: Increased pain in wound Increase in drainage from the wound Redness in the skin surrounding the wound Bleeding from the wound Temperature of 101 or greater Patient instructed that the weight of their body puts a large amount of pressure on their wounds. This pressure keeps the new tissue from growing and inhibits new blood vessels from forming. Explained that, if they continue to bear weight on a body part that has a wound, the time it takes to heal the wound increases, the wound may get worse or the wound may not heal at all. Patient verbalized understanding of all discharge instructions and plan of care and ambulated independently out to [facility] in stable condition with no sign or symptom of distress at time of discharge. Addendum: 01/05/19 at 1401 by Elen Sousa RN Amended: Links added.
== END 2019-01-05 10:57 | disposition home or self-care (01) ==
LOC: WOUND CARE 09:00
PROVIDERS: ATTEND Surgery
DX: T81.89XD Other complications of procedures, not elsewhere classified, subsequent encounter (principal); L97.514 Non-pressure chronic ulcer of other part of right foot with necrosis of bone; M86.171 Other acute osteomyelitis, right ankle and foot; J44.9 Chronic obstructive pulmonary disease, unspecified; I10 Essential (primary) hypertension; I73.9 Peripheral vascular disease, unspecified; E87.6 Hypokalemia; E78.00 Pure hypercholesterolemia, unspecified; E78.5 Hyperlipidemia, unspecified; F10.10 Alcohol abuse, uncomplicated; F17.210 Nicotine dependence, cigarettes, uncomplicated; F19.10 Other psychoactive substance abuse, uncomplicated; Z85.038 Personal history of other malignant neoplasm of large intestine; Z85.828 Personal history of other malignant neoplasm of skin; Z68.31 Body mass index [BMI] 31.0-31.9, adult; Y83.8 Other surgical procedures as the cause of abnormal reaction of the patient, or of later complication, without mention of misadventure at the time of the procedure
CPT/HCPCS: 97597; A6209; A6021; A6206; A6446

== ENCOUNTER 2019-01-12 08:35 | Day surgery (SDC) | payer MEDICAID ==
[2019-01-12] MEDS ORDERED: LIDOcaine/PRILOcaine 5gm cream TP ONE (09:45)
--- NOTE | 2019-01-12 14:26 | NUR ---
Patient arrived safely into [facility] via scooter. Patient admitted to outpatient wound care clinic for physician visit with Joey Bowman MD. Dressing removed, wound cleansed and Emla cream applied per order. Patient assessed for changes in conditions, medications and medical history. Dr. Bowman at bedside accompanied by RN. Wound assessed, time out performed by MD/RN. Wound debrided as detailed in the physician progress/procedure note. Plan of care discussed with patient. Dressings placed per MD orders. Patient instructed on the signs and symptoms of infection and to call the Wound Center if any occur or to go to the ED if we are closed: Increased pain in wound Increase in drainage from the wound Redness in the skin surrounding the wound Bleeding from the wound Temperature of 101 or greater Patient instructed that the weight of their body puts a large amount of pressure on their wounds. This pressure keeps the new tissue from growing and inhibits new blood vessels from forming. Explained that, if they continue to bear weight on a body part that has a wound, the time it takes to heal the wound increases, the wound may get worse or the wound may not heal at all. Patient verbalized understanding of all discharge instructions and plan of care and ambulated independently out to [facility] in stable condition with no sign or symptom of distress at time of discharge. Addendum: 01/12/19 at 1428 by Elen Sousa RN Amended: Links added.
== END 2019-01-12 10:57 | disposition home or self-care (01) ==
LOC: WOUND CARE 08:35
PROVIDERS: ATTEND Surgery
DX: T81.89XD Other complications of procedures, not elsewhere classified, subsequent encounter (principal); L97.514 Non-pressure chronic ulcer of other part of right foot with necrosis of bone; M86.171 Other acute osteomyelitis, right ankle and foot; J44.9 Chronic obstructive pulmonary disease, unspecified; I10 Essential (primary) hypertension; I73.9 Peripheral vascular disease, unspecified; E87.6 Hypokalemia; E78.00 Pure hypercholesterolemia, unspecified; E78.5 Hyperlipidemia, unspecified; M86.8X7 Other osteomyelitis, ankle and foot; F10.10 Alcohol abuse, uncomplicated; F17.210 Nicotine dependence, cigarettes, uncomplicated; F19.10 Other psychoactive substance abuse, uncomplicated; Z85.038 Personal history of other malignant neoplasm of large intestine; Z85.828 Personal history of other malignant neoplasm of skin; Z68.31 Body mass index [BMI] 31.0-31.9, adult; Y83.8 Other surgical procedures as the cause of abnormal reaction of the patient, or of later complication, without mention of misadventure at the time of the procedure
CPT/HCPCS: 97597; A6209; A6222; A6021; A6206; A6446

== ENCOUNTER 2019-03-10 14:22 | Emergency (ER) | payer MEDICAID ==
[~2019-03-10] VITALS: Ht 160 cm; Wt 92.0 kg
[2019-03-10 15:17] LABS: BASOPHILS # (AUTO) 0.1 X10'3 (0-0.2); EOSINOPHILS # (AUTO) 0.1 X10'3 (0-0.9); HEMOGLOBIN 15.2 g/dl (12.0-16.0); LYMPHOCYTES # (AUTO) 2.8 X10'3 (1.1-4.8); NEUTROPHILS # (AUTO) 6.2 X10'3 (1.8-7.7)
[2019-03-10 15:19] LABS: HEMATOCRIT 42.8 % (35.0-45.0); LYMPHOCYTES % (AUTO) 28.5 % (21-51); MEAN CORPUSCULAR HEMOGLOBIN 31.5 PG (27.0-31.0); MEAN CORPUSCULAR HGB CONC 35.6 g/dL (33.0-36.5); MEAN CORPUSCULAR VOLUME 88.7 FL (78-98); MEAN PLATELET VOLUME 7.5 FL (7.4-10.4); MONOCYTES # (AUTO) 0.6 X10'3 (0-0.9); NEUTROPHILS % (AUTO) 63.5 % (42-75); PLATELET COUNT 362 X10'3 (140-440); RED BLOOD COUNT 4.83 X10'6 (4.20-5.60); RED CELL DISTRIBUTION WIDTH 14.1 % (11.5-14.5); WHITE BLOOD COUNT 9.7 X10'3 (4.5-11.0)
[2019-03-10 15:33] LABS: PARTIAL THROMBOPLASTIN TIME 31 SECONDS (22-32)
[2019-03-10 15:38] LABS: ALANINE AMINOTRANSFERASE 57 U/L (12-78); ALBUMIN 3.5 G/DL (3.4-5.0); ALBUMIN/GLOBULIN RATIO 0.8 (1.1-1.5); ALKALINE PHOSPHATASE 89 IU/L (46-116); ANION GAP 11 (8-16); ASPARTATE AMINO TRANSFERASE 14 U/L (10-37); BILIRUBIN,TOTAL 0.7 MG/DL (0.1-1.0); BLOOD UREA NITROGEN 4 MG/DL (7-18); BUN/CREATININE RATIO 4.9 (6.6-38.0); CHLORIDE 96 MMOL/L (99-107); CREATININE 0.81 MG/DL (0.40-0.90); GLUCOSE 97 MG/DL (70-104); POTASSIUM 3.3 MMOL/L (3.5-5.1); SODIUM 133 MMOL/L (135-145); TOTAL PROTEIN 7.7 G/DL (6.4-8.2); eGFR 74 ML/MIN
[2019-03-10 17:49] VITALS: BP 119/47
== END 2019-03-10 17:54 | disposition home or self-care (01) ==
LOC: ER 14:23
DX: R42 Dizziness and giddiness (principal); I10 Essential (primary) hypertension; J45.909 Unspecified asthma, uncomplicated; G89.29 Other chronic pain; F17.200 Nicotine dependence, unspecified, uncomplicated; Z98.890 Other specified postprocedural states; Z90.89 Acquired absence of other organs; Z91.018 Allergy to other foods; Z88.5 Allergy status to narcotic agent; Z79.899 Other long term (current) drug therapy
CPT/HCPCS: 36415; 71045; 80053; 83605; 84145; 85025; 85610; 85730; 87040; 93005; 99284

== ENCOUNTER 2019-03-18 08:50 | Day surgery (SDC) | payer MEDICAID ==
[2019-03-18] MEDS ORDERED: LIDOcaine 2% 5ml jelly ONE (09:23)
== END 2019-03-18 10:09 | disposition home or self-care (01) ==
LOC: WOUND CARE 08:50
PROVIDERS: ATTEND Surgery
DX: T81.89XD Other complications of procedures, not elsewhere classified, subsequent encounter (principal); L97.511 Non-pressure chronic ulcer of other part of right foot limited to breakdown of skin; I10 Essential (primary) hypertension; G89.29 Other chronic pain; J45.909 Unspecified asthma, uncomplicated; F17.200 Nicotine dependence, unspecified, uncomplicated; Z79.899 Other long term (current) drug therapy; Z90.89 Acquired absence of other organs; Z98.890 Other specified postprocedural states; Y83.8 Other surgical procedures as the cause of abnormal reaction of the patient, or of later complication, without mention of misadventure at the time of the procedure
CPT/HCPCS: 97597; A4663

== ENCOUNTER 2019-04-01 09:00 | Outpatient (CLI) | payer MEDICAID | END 2019-04-01 10:47 | disposition home or self-care (01) | LOC: WOUND CARE 09:00 → EDSTATUS 09:00 → WOUND CARE 10:47 | PROVIDERS: ATTEND Surgery | DX: T81.89XD Other complications of procedures, not elsewhere classified, subsequent encounter (principal); L97.511 Non-pressure chronic ulcer of other part of right foot limited to breakdown of skin; I10 Essential (primary) hypertension; G89.29 Other chronic pain; J45.909 Unspecified asthma, uncomplicated; F17.200 Nicotine dependence, unspecified, uncomplicated; Z79.899 Other long term (current) drug therapy; Z90.89 Acquired absence of other organs; Z98.890 Other specified postprocedural states; Y83.8 Other surgical procedures as the cause of abnormal reaction of the patient, or of later complication, without mention of misadventure at the time of the procedure | CPT/HCPCS: A4663; G0463 ==

== ENCOUNTER 2019-07-06 09:48 | Emergency (ER) | payer MEDICAID ==
[~2019-07-06] VITALS: Ht 160 cm; Wt 105.0 kg
[2019-07-06 09:56] VITALS: BP 169/95
[2019-07-06 10:56] LABS: CLARITY,URINE CLEAR (Clear); COLOR,URINE STRAW (Yellow); GLUCOSE, URINE NEGATIVE (Neg); KETONES,URINE NEGATIVE (Neg); LEUKOCYTE ESTERASE ,URINE NEGATIVE (Neg); NITRITES, URINE NEGATIVE (Neg); OCCULT BLOOD,URINE TRACE-LYSED (Neg); PH,URINE 7.5 (4.8-8.0); PROTEIN,URINE NEGATIVE (Neg); UROBILINOGEN,URINE 0.2 E.U/dL (0.2-1.0)
[2019-07-06 11:02] LABS: SQUAMOUS EPITHELIAL CELL,UR FEW /LPF (FEW); UA COLLECTION TYPE NON-SPECIFIED
[2019-07-06 11:03] LABS: BACTERIA,URINE FEW /HPF (Neg); MUCUS STRANDS NONE SEEN /LPF (Neg); RBC,URINE 0-2 /HPF (0-2); WBC,URINE 0-4 /HPF (0-4)
== END 2019-07-06 12:48 | disposition home or self-care (01) ==
LOC: ER 09:49
DX: R07.89 Other chest pain (principal); R05 Cough; Z98.890 Other specified postprocedural states; Z91.018 Allergy to other foods; Z88.5 Allergy status to narcotic agent; Z79.2 Long term (current) use of antibiotics; Z79.899 Other long term (current) drug therapy
CPT/HCPCS: 71101; 81001; 99284

== ENCOUNTER 2019-07-08 12:59 | Emergency (ER) | payer MEDICAID ==
[~2019-07-08] VITALS: Ht 160 cm; Wt 94.0 kg
[2019-07-08 13:51] LABS: BASOPHILS # (AUTO) 0.2 X10'3 (0-0.2); BASOPHILS % (AUTO) 1.4 % (0-1); EOSINOPHILS # (AUTO) 0.1 X10'3 (0-0.9); EOSINOPHILS % (AUTO) 0.7 % (0-6); HEMATOCRIT 42.7 % (35.0-45.0); LYMPHOCYTES # (AUTO) 2.5 X10'3 (1.1-4.8); LYMPHOCYTES % (AUTO) 23.4 % (21-51); MEAN CORPUSCULAR HEMOGLOBIN 31.7 PG (27.0-31.0); MEAN CORPUSCULAR HGB CONC 35.1 g/dL (33.0-36.5); MEAN CORPUSCULAR VOLUME 90.3 FL (78-98); MEAN PLATELET VOLUME 7.5 FL (7.4-10.4); MONOCYTES # (AUTO) 0.5 X10'3 (0-0.9); MONOCYTES % (AUTO) 4.5 % (2-12); NEUTROPHILS # (AUTO) 7.6 X10'3 (1.8-7.7); PLATELET COUNT 337 X10'3 (140-440); RED BLOOD COUNT 4.72 X10'6 (4.20-5.60); RED CELL DISTRIBUTION WIDTH 14.1 % (11.5-14.5); WHITE BLOOD COUNT 10.8 X10'3 (4.5-11.0)
[2019-07-08 14:07] LABS: ALANINE AMINOTRANSFERASE 38 U/L (12-78); ALBUMIN 3.7 G/DL (3.4-5.0); ALBUMIN/GLOBULIN RATIO 0.9 (1.1-1.5); ALKALINE PHOSPHATASE 89 IU/L (46-116); ANION GAP 6 (8-16); ASPARTATE AMINO TRANSFERASE 13 U/L (10-37); BILIRUBIN,TOTAL 0.8 MG/DL (0.1-1.0); BLOOD UREA NITROGEN 6 MG/DL (7-18); BUN/CREATININE RATIO 6.8 (6.6-38.0); CALCIUM 9.2 MG/DL (8.5-10.1); CHLORIDE 99 MMOL/L (99-107); CREATININE 0.88 MG/DL (0.40-0.90); GLUCOSE 91 MG/DL (70-104); LIPASE 82 U/L (73-393); SODIUM 134 MMOL/L (135-145); TOTAL CARBON DIOXIDE 29.5 MMOL/L (24-32); TOTAL PROTEIN 7.6 G/DL (6.4-8.2); eGFR 67 ML/MIN
[2019-07-08 14:47] LABS: CLARITY,URINE SLIGHTLY CLOUDY (Clear); COLOR,URINE YELLOW (Yellow); GLUCOSE, URINE NEGATIVE (Neg); KETONES,URINE NEGATIVE (Neg); LEUKOCYTE ESTERASE ,URINE NEGATIVE (Neg); NITRITES, URINE NEGATIVE (Neg); OCCULT BLOOD,URINE TRACE-INTACT (Neg); PH,URINE 7.5 (4.8-8.0); PROTEIN,URINE NEGATIVE (Neg); UROBILINOGEN,URINE 0.2 E.U/dL (0.2-1.0)
[2019-07-08 14:50] LABS: UA COLLECTION TYPE NON-SPECIFIED
[2019-07-08 14:53] LABS: SQUAMOUS EPITHELIAL CELL,UR FEW /LPF (FEW)
[2019-07-08 14:54] LABS: BACTERIA,URINE FEW /HPF (Neg); RBC,URINE 0-2 /HPF (0-2); WBC,URINE 0-4 /HPF (0-4)
[2019-07-08 15:44] VITALS: BP 146/89
== END 2019-07-08 16:24 | disposition home or self-care (01) ==
LOC: ER 12:59
DX: R10.12 Left upper quadrant pain (principal); R05 Cough; I10 Essential (primary) hypertension; J45.909 Unspecified asthma, uncomplicated; G89.29 Other chronic pain; F10.99 Alcohol use, unspecified with unspecified alcohol-induced disorder; Z90.49 Acquired absence of other specified parts of digestive tract; Z98.890 Other specified postprocedural states; Z91.018 Allergy to other foods; Z88.5 Allergy status to narcotic agent; Z79.899 Other long term (current) drug therapy; Y90.9 Presence of alcohol in blood, level not specified
CPT/HCPCS: 36415; 74176; 80053; 81001; 83690; 85025; 99284

== ENCOUNTER 2019-11-20 15:15 | Observation (INO) | payer MEDICAID ==
[~2019-11-20] VITALS: Ht 160 cm; Wt 95.0 kg
[~2019-11-20 15:15] MED LIST changes: -CETI-102 PO; +CETI-90 PO
[2019-11-20] MEDS ORDERED: normal saline 1000ML IV soln IVB ONE (16:25)
[2019-11-20] MEDS ORDERED: ondansetron/PF 4mg/2ml inj IV ONE (16:25)
--- NOTE | 2019-11-20 16:31 | NUR ---
spoke with poison control regarding pt spaying house with bug spay and c/o cp, cough, sore throat, and dizzines. they informed RN lung irritant is expected, treat with supportive treatment such as steroids and breathing treatment. CP is not expected, ekg is reccomended.
[2019-11-20 16:49] LABS: BASOPHILS # (AUTO) 0.2 X10'3 (0-0.2); BASOPHILS % (AUTO) 1.1 % (0-1); EOSINOPHILS % (AUTO) 0.1 % (0-6); HEMATOCRIT 40.1 % (35.0-45.0); HEMOGLOBIN 14.2 g/dl (12.0-16.0); LYMPHOCYTES # (AUTO) 1.5 X10'3 (1.1-4.8); LYMPHOCYTES % (AUTO) 11.5 % (21-51); MEAN CORPUSCULAR HEMOGLOBIN 31.2 PG (27.0-31.0); MEAN CORPUSCULAR HGB CONC 35.4 g/dL (33.0-36.5); MEAN CORPUSCULAR VOLUME 88.1 FL (78-98); MEAN PLATELET VOLUME 7.4 FL (7.4-10.4); MONOCYTES # (AUTO) 0.5 X10'3 (0-0.9); MONOCYTES % (AUTO) 4.1 % (2-12); NEUTROPHILS % (AUTO) 83.2 % (42-75); PLATELET COUNT 351 X10'3 (140-440); RED BLOOD COUNT 4.55 X10'6 (4.20-5.60); WHITE BLOOD COUNT 13.2 X10'3 (4.5-11.0)
[2019-11-20 17:01] LABS: ALANINE AMINOTRANSFERASE 31 U/L (12-78); ALBUMIN 3.3 G/DL (3.4-5.0); ALBUMIN/GLOBULIN RATIO 0.9 (1.1-1.5); ALKALINE PHOSPHATASE 87 IU/L (46-116); ANION GAP 9 (8-16); ASPARTATE AMINO TRANSFERASE 23 U/L (10-37); BILIRUBIN,TOTAL 0.7 MG/DL (0.1-1.0); BLOOD UREA NITROGEN 6 MG/DL (7-18); BUN/CREATININE RATIO 7.5 (6.6-38.0); CALCIUM 8.5 MG/DL (8.5-10.1); CHLORIDE 85 MMOL/L (99-107); GLUCOSE 122 MG/DL (70-104); SODIUM 122 MMOL/L (135-145); TOTAL CARBON DIOXIDE 27.7 MMOL/L (24-32); TOTAL PROTEIN 6.9 G/DL (6.4-8.2); eGFR 75 ML/MIN
[2019-11-20 17:07] LABS: POTASSIUM 2.7 MMOL/L (3.5-5.1)
[2019-11-20] MEDS ORDERED: potassium Cl 20 mEq SR tablet PO STA (17:15)
[2019-11-20] MEDS ORDERED: magnesium oxide 400mg tablet PO ONE (17:15)
[2019-11-20] MEDS ORDERED: POTA20TA19 PO (17:16)
[2019-11-20] MEDS ORDERED: ondansetron/PF 4mg/2ml inj IV PRN (17:35)
[2019-11-20] MEDS ORDERED: magnesium hydroxide 30ml (MOM) UD suspension PO PRN (17:35)
[2019-11-20] MEDS ORDERED: acetaminophen 325mg tablet PO PRN (17:35)
[2019-11-20] MEDS ORDERED: mag hydrox/Alum hydrox/simeth 30ml oral suspension PO PRN (17:35)
[2019-11-20] MEDS: potassium Cl 20mEq in NS 1,000 ML IV SCH (17:56)
[2019-11-20 18:45] VITALS: BP 168/84
[2019-11-20] MEDS ORDERED: potassium Cl 20 mEq SR tablet PO PRN (20:15)
[2019-11-20] MEDS ORDERED: potassium CL 10mEq/100ml bag 100 ML IV PRN (20:15)
[2019-11-20] MEDS: potassium Cl 20 mEq SR tablet PO PRN (20:28)
[2019-11-20] MEDS: heparin, porcine 5000 units/ml vial SQ SCH (20:28)
[2019-11-20] MEDS: K and/or MAG REPLACEMENT MC SCH (20:44)
--- NOTE | 2019-11-20 21:18 | NUR ---
placed patient on electrolyte protocol - MD aware.
[2019-11-20 22:00] VITALS: BP 118/71
[2019-11-21] MEDS: potassium Cl 20 mEq SR tablet PO PRN (00:43)
[2019-11-21 03:15] LABS: ANION GAP 6 (8-16); BLOOD UREA NITROGEN 6 MG/DL (7-18); BUN/CREATININE RATIO 7.6 (6.6-38.0); CALCIUM 8.3 MG/DL (8.5-10.1); CHLORIDE 100 MMOL/L (99-107); CREATININE 0.79 MG/DL (0.40-0.90); GLUCOSE 106 MG/DL (70-104); MAGNESIUM 2.1 MG/DL (1.5-2.4); POTASSIUM 4.1 MMOL/L (3.5-5.1); SODIUM 133 MMOL/L (135-145); TOTAL CARBON DIOXIDE 27.5 MMOL/L (24-32); eGFR 76 ML/MIN
[2019-11-21 03:35] LABS: BASOPHILS # (AUTO) 0.1 X10'3 (0-0.2); BASOPHILS % (AUTO) 1.1 % (0-1); EOSINOPHILS % (AUTO) 0.3 % (0-6); HEMATOCRIT 38.7 % (35.0-45.0); HEMOGLOBIN 13.5 g/dl (12.0-16.0); LYMPHOCYTES # (AUTO) 2.4 X10'3 (1.1-4.8); LYMPHOCYTES % (AUTO) 28.8 % (21-51); MEAN CORPUSCULAR HEMOGLOBIN 31.2 PG (27.0-31.0); MEAN CORPUSCULAR HGB CONC 34.8 g/dL (33.0-36.5); MEAN CORPUSCULAR VOLUME 89.6 FL (78-98); MEAN PLATELET VOLUME 7.9 FL (7.4-10.4); MONOCYTES # (AUTO) 0.6 X10'3 (0-0.9); MONOCYTES % (AUTO) 7.1 % (2-12); NEUTROPHILS # (AUTO) 5.3 X10'3 (1.8-7.7); NEUTROPHILS % (AUTO) 62.7 % (42-75); PLATELET COUNT 301 X10'3 (140-440); RED BLOOD COUNT 4.31 X10'6 (4.20-5.60); RED CELL DISTRIBUTION WIDTH 13.9 % (11.5-14.5); WHITE BLOOD COUNT 8.5 X10'3 (4.5-11.0)
[2019-11-21] MEDS: potassium Cl 20mEq in NS 1,000 ML IV SCH (03:56)
[2019-11-21 05:58] LABS: BASOPHILS % (AUTO) 0.1 % (0-1); EOSINOPHILS % (AUTO) 0.3 % (0-6); HEMATOCRIT 40.4 % (35.0-45.0); HEMOGLOBIN 13.8 g/dl (12.0-16.0); LYMPHOCYTES # (AUTO) 2.5 X10'3 (1.1-4.8); LYMPHOCYTES % (AUTO) 32.9 % (21-51); MEAN CORPUSCULAR HEMOGLOBIN 30.7 PG (27.0-31.0); MEAN CORPUSCULAR HGB CONC 34.2 g/dL (33.0-36.5); MEAN CORPUSCULAR VOLUME 89.9 FL (78-98); MEAN PLATELET VOLUME 7.6 FL (7.4-10.4); MONOCYTES # (AUTO) 0.5 X10'3 (0-0.9); NEUTROPHILS # (AUTO) 4.6 X10'3 (1.8-7.7); NEUTROPHILS % (AUTO) 60.7 % (42-75); PLATELET COUNT 335 X10'3 (140-440); RED BLOOD COUNT 4.49 X10'6 (4.20-5.60); RED CELL DISTRIBUTION WIDTH 13.7 % (11.5-14.5); WHITE BLOOD COUNT 7.5 X10'3 (4.5-11.0)
[2019-11-21 06:10] VITALS: BP 133/62
--- NOTE | 2019-11-21 06:17 | NUR ---
Problems reprioritized. Patient report given, questions answered & plan of care reviewed with BEATRIZ Gifford.
[2019-11-21 06:22] LABS: ANION GAP 8 (8-16); BLOOD UREA NITROGEN 7 MG/DL (7-18); BUN/CREATININE RATIO 9.3 (6.6-38.0); CALCIUM 8.4 MG/DL (8.5-10.1); CHLORIDE 101 MMOL/L (99-107); CREATININE 0.75 MG/DL (0.40-0.90); GLUCOSE 102 MG/DL (70-104); MAGNESIUM 2.2 MG/DL (1.5-2.4); POTASSIUM 4.9 MMOL/L (3.5-5.1); SODIUM 133 MMOL/L (135-145); TOTAL CARBON DIOXIDE 24.4 MMOL/L (24-32); eGFR 81 ML/MIN
--- NOTE | 2019-11-21 06:30 | NUR ---
Patient in room ORTHO 4011. I have received report from Sheri HENDERSON and had the opportunity to ask questions and assume patient care.
[2019-11-21] MEDS: heparin, porcine 5000 units/ml vial SQ SCH (07:41)
[2019-11-21] MEDS: K and/or MAG REPLACEMENT MC SCH (08:00)
[2019-11-21 10:00] VITALS: BP 144/74
[2019-11-21] MEDS ORDERED: POTA20TA19 PO (10:47)
[2019-11-21] MEDS ORDERED: loperamide 2mg capsule PO ONE (13:30)
[2019-11-21] MEDS ORDERED: AMLO2.5T2 PO (14:42)
--- NOTE | 2019-11-21 16:20 | NUR ---
Patient discharged at this time, she was taught about medication changes and why. She was told to follow up with her primary care Dr, and to call 911 or emergency if needed.
== END 2019-11-21 15:25 | disposition home or self-care (01) ==
LOC: ER 15:16 → ED HOLD 17:32 → ORTHO 4S 18:40
PROVIDERS: ADMIT Family Medicine; ATTEND Family Medicine
DX: G93.41 Metabolic encephalopathy (principal); E87.6 Hypokalemia; R41.0 Disorientation, unspecified; E87.1 Hypo-osmolality and hyponatremia; I10 Essential (primary) hypertension; J45.909 Unspecified asthma, uncomplicated; G89.29 Other chronic pain; F17.200 Nicotine dependence, unspecified, uncomplicated; Z90.49 Acquired absence of other specified parts of digestive tract; Z79.899 Other long term (current) drug therapy; Z88.5 Allergy status to narcotic agent; Z91.018 Allergy to other foods
CPT/HCPCS: 36415; 71045; 80048; 80053; 83735; 85025; 87081; 93005; 96361; 96365; 96366; 96372; 96375; 99285; G0378; J1644; J2405; J3480; J7030

== ENCOUNTER 2020-05-10 05:21 | Inpatient (IN) | payer MEDICAID ==
[2020-05-03 16:07] LABS: BASOPHILS % (AUTO) 0.4 % (0-1); EOSINOPHILS # (AUTO) 0.1 X10'3 (0-0.9); EOSINOPHILS % (AUTO) 1.1 % (0-6); LYMPHOCYTES # (AUTO) 2.5 X10'3 (1.1-4.8); LYMPHOCYTES % (AUTO) 25.8 % (21-51); MEAN CORPUSCULAR HEMOGLOBIN 31.8 PG (27.0-31.0); MEAN CORPUSCULAR HGB CONC 34.1 g/dL (33.0-36.5); MEAN CORPUSCULAR VOLUME 93.3 FL (78-98); MEAN PLATELET VOLUME 7.8 FL (7.4-10.4); MONOCYTES # (AUTO) 0.5 X10'3 (0-0.9); MONOCYTES % (AUTO) 4.7 % (2-12); NEUTROPHILS # (AUTO) 6.5 X10'3 (1.8-7.7); PRE OP HEMATOCRIT 46.1 % (35.0-45.0); PRE OP HEMOGLOBIN 15.7 g/dL (12.0-16.0); PRE OP PLATELET COUNT 331 X10'3 (140-440); RED BLOOD COUNT 4.94 X10'6 (4.20-5.60); RED CELL DISTRIBUTION WIDTH 14.9 % (11.5-14.5)
[2020-05-03 16:25] LABS: ALBUMIN 3.4 G/DL (3.4-5.0); ALBUMIN/GLOBULIN RATIO 0.9 (1.1-1.5); ALKALINE PHOSPHATASE 130 IU/L (46-116); BLOOD UREA NITROGEN 9 MG/DL (7-18); BUN/CREATININE RATIO 9.2 (6.6-38.0); CALCIUM 8.9 MG/DL (8.5-10.1); CHLORIDE 103 MMOL/L (99-107); CREATININE 0.98 MG/DL (0.40-0.90); PRE OP ALT 33 U/L (30-65); PRE OP ANION GAP 6 (8-16); PRE OP AST 12 U/L (10-37); PRE OP BILIRUB, TOTAL 0.6 MG/DL (0.0-1.0); PRE OP GLUCOSE 104 MG/DL (70-104); PRE OP POTASSIUM 4.2 MMOL/L (3.4-5.1); PRE OP SODIUM 135 MMOL/L (135-145); TOTAL CARBON DIOXIDE 25.7 MMOL/L (24-32); TOTAL PROTEIN 7.3 G/DL (6.4-8.2); eGFR 59 ML/MIN
[~2020-05-10] VITALS: Ht 160 cm; Wt 94.0 kg
[2020-05-10] VITALS (28 sets, daily range): BP systolic 107–210; BP diastolic 63–127
[~2020-05-10 05:21] MED LIST changes: +AMLO5TAB16 PO; -CETI-90 PO; +HYDR-3927 PO; -HYDR-4353 PO; -HYDR12.5 PO; -VANC1VIA21 IV; +ringers solution, lacted 1,000 ML IV SCH
[2020-05-10] MEDS ORDERED: famotidine 20mg tablet PO ONE (05:30)
[2020-05-10] MEDS ORDERED: cefazolin/dext.iso 2gm/50ml 50 ML IV ONE (06:00)
[2020-05-10] MEDS ORDERED: albuterol 2.5 MG/3 ML nebule NEB ONE (06:15)
[2020-05-10] MEDS ORDERED: albuterol 2.5 MG/3 ML nebule ONE (06:28)
--- NOTE | 2020-05-10 06:32 | NUR ---
RT AT PT'S BEDSIDE FOR PASS SVN TX. ALBUTEROL SVN WAS ORDERED HOWEVER I WAS NOT ABLE TO RETRIEVE MEDICATION FROM OMNICELL AFTER MULTIPLE ATTEMPTS. RN CALLED PHARMACY AND THEY WERE NOT ABLE TO FIX THE ISSUE. MEDICATION WAS OVERRODE IN OMNI BY RT. Addendum: 05/10/20 at 0634 by Megan Elder RT Amended: Links added.
[2020-05-10] MEDS ORDERED: LIDOcaine 1% 30ml preserv. free vial ONE (06:41)
[2020-05-10] MEDS ORDERED: BUPIVACAINE liposomal/PF 13.3 MG/ML vial IM ONE (06:42)
[2020-05-10] MEDS ORDERED: BUPIVAcaine/PF 2.5mg/ml (0.25%) 10ml vial ONE (06:42)
[2020-05-10] MEDS ORDERED: BUPIVAcaine/PF 2.5 mg/ml (0.25%) 30ml vial ONE (06:42)
[2020-05-10] MEDS ORDERED: MIDAZolam 5mg/5ml vial ONE (07:08)
[2020-05-10] MEDS ORDERED: fentaNYL /PF 50mcg/ml 5ml ampule ONE (07:08)
[2020-05-10] MEDS ORDERED: rocuronium 10mg/ml inj IV ONE ×3 (07:10→09:20)
[2020-05-10] MEDS ORDERED: propofol inj 20 ML IV ONE (07:10)
[2020-05-10] MEDS ORDERED: dexamethasone sod phosphate 4mg/ml inj. ONE (07:10)
[2020-05-10] MEDS ORDERED: ondansetron/PF 4mg/2ml inj ONE (07:10)
[2020-05-10] MEDS ORDERED: LIDOcaine 2% (20mg/ml) 5ml vial ONE (07:10)
[2020-05-10] MEDS ORDERED: glycopyrrolate 0.2mg/ml inj ONE (07:10)
[2020-05-10] MEDS ORDERED: neostigmine methylsulfate 1 MG/ML 10ml vial ONE (07:10)
[2020-05-10] MEDS ORDERED: morphine 4 MG/ML inj SYRINge IV PRN (07:15)
[2020-05-10] MEDS ORDERED: ondansetron/PF 4mg/2ml inj IV PRN ×2 (07:15→13:20)
[2020-05-10] MEDS ORDERED: morphine 2 MG/ML inj. syringe IV PRN ×2 (07:15)
[2020-05-10] MEDS ORDERED: hydrALAZINE 20mg/ml inj. IV PRN (07:15)
[2020-05-10] MEDS ORDERED: ringers solution, lacted 1,000 ML IV SCH (07:15)
[2020-05-10] MEDS ORDERED: sevoflurane 250ml liquid IH ONE (07:26)
[2020-05-10] MEDS ORDERED: labetalol 20mg/4ml (5mg/ml) syringe IV ONE (08:00)
--- NOTE | 2020-05-10 11:10 | NUR ---
ADMITTED TO PACU FROM OR ACCOMPANIED BY ANESTHESIA. INTIAL PHYSICAL ASSESSMENT DONE AND RECORDED. REPORT RECEIVED FROM ANESTHESIA. PT IN RESPIRATORY DISTRESS ON ARRIVAL TO PACU, EXTREMELY HYPERTENSIVE. DR. MCGRATH AT BEDSIDE, PT RESPOSITIONED FOR BETTER RESPIRATORY EFFORT.
[2020-05-10] MEDS: labetalol 20mg/4ml (5mg/ml) syringe IV PRN ×2 (11:20→11:25)
--- NOTE | 2020-05-10 11:20 | NUR ---
LABETALOL 5MG IV GIVEN FOR BP MEAN >143. 1125 LABETALOL 5MG IV REPEATED FOR HYPERTENSION. SEE FLOW SHEET.
[2020-05-10] MEDS ORDERED: ipratropium/albuterol 3ml nebule NEB PRN (11:35)
--- NOTE | 2020-05-10 11:40 | NUR ---
RESPIRATORY STATUS REMAINS LABILE, CALL TO DR. MCGRATH UPDATED ON CONDITION, HHN ORDERED FOR INSPIRATORY WHEEZES, AND LOW SAO2. HHN GIVEN, PLACED ON 3L/NC AND 10L SIMPLE FACE MASK. PRODUCING SAO2 ~91-92. C/O PAIN, MEDICATED ORDERED.
[2020-05-10] MEDS: morphine 4 MG/ML inj SYRINge IV PRN ×2 (12:07→12:24)
--- NOTE | 2020-05-10 12:10 | NUR ---
MEDICATED WITH MORPHINE FOR COMPLAINTS OF SURGICAL PAIN ORDERED, ABD BINDER LOOSENED TO FACILITATE EASIER BREATHING. CONTINUES TO REQUIRE BOTH FACE MASK AND N/C.
--- NOTE | 2020-05-10 13:15 | NUR ---
DR. ONEIL AT BEDSIDE, UPDATED ON CONDITION. DECISION MADE TO ADMIT PATIENT FOR OVERNIGHT OBSERVATION, SURGICAL FLOOR CALLED, BED REQUESTED.
[2020-05-10] MEDS: Potassium Cl inj 20 MEQ in ringers solution, lacted 1,000 ML IV SCH (13:20)
--- NOTE | 2020-05-10 14:00 | NUR ---
SIMPLE FACE MASK OFF ON N/C ONLY , CLEARED WITH DR. MCGRATH AND DR. THAD GRIFFITHS TO TRANSFER TO ROOM WHEN BED IS READY.
--- NOTE | 2020-05-10 14:18 | NUR ---
Problems reprioritized. Patient report given, questions answered & plan of care reviewed with Kamala HENDERSON.
--- NOTE | 2020-05-10 14:20 | NUR ---
PACU DISCHARGE CRITERIA MET, REPORT GIVEN TO FLOOR. DENIES PAIN OR DISCOMFORT, TRANSFERRED TO ROOM IN STABLE GOOD CONDITION.
[2020-05-10] MEDS ORDERED: albuterol 2.5 MG/3 ML nebule NEB SCH (15:00)
[2020-05-10] MEDS: ipratropium/albuterol 3ml nebule NEB PRN (15:02)
[2020-05-10] MEDS: HYDROcodone/acetaminophen 10/325mg tab PO PRN ×2 (17:36→21:39)
--- NOTE | 2020-05-10 18:39 | NUR ---
Problems reprioritized. Patient report given, questions answered & plan of care reviewed with Ricardo HENDERSON.
--- NOTE | 2020-05-10 19:12 | NUR ---
Patient in room WES 344. I have received report from BEATRIZ Davenport and had the opportunity to ask questions and assume patient care.
[2020-05-10] MEDS: hydrOXYzine 25 MG tablet PO SCH (19:50)
[2020-05-10] MEDS: heparin, porcine 5000 units/ml vial SQ SCH (19:51)
[2020-05-10] MEDS ORDERED: hydrOXYzine 25 MG tablet PO SCH (20:00)
[2020-05-11] MEDS: Potassium Cl inj 20 MEQ in ringers solution, lacted 1,000 ML IV SCH (00:10)
--- NOTE | 2020-05-11 03:41 | NUR ---
Gave report to BEATRIZ Syed, patient was transferred to telemetry unit
[2020-05-11] MEDS: HYDROcodone/acetaminophen 10/325mg tab PO PRN ×5 (03:53→21:43)
--- NOTE | 2020-05-11 04:21 | NUR ---
Patient in room PCU 3008. I have received report from Ricardo HENDERSON and had the opportunity to ask questions and assume patient care.
--- NOTE | 2020-05-11 06:11 | NUR ---
Problems reprioritized. Patient report given, questions answered & plan of care reviewed with aRni HENDERSON.
[2020-05-11 07:30] VITALS: BP 136/72
[2020-05-11] MEDS: heparin, porcine 5000 units/ml vial SQ SCH ×2 (07:59→20:56)
[2020-05-11] MEDS: hydrOXYzine 25 MG tablet PO SCH ×3 (08:00→20:55)
[2020-05-11] MEDS: losartan 25mg tablet PO SCH (08:00)
[2020-05-11] MEDS: amLODIPine 5mg tablet PO SCH (08:01)
--- NOTE | 2020-05-11 09:43 | NUR ---
PAGE SENT TO RESPIRATORY... 4110 Rob R: RT eval and treat. patient requesting RT. feeling SOB. thank you
[2020-05-11] MEDS: ipratropium/albuterol 3ml nebule NEB PRN (09:59)
[2020-05-11 11:58] VITALS: BP 139/74
[2020-05-11 15:15] VITALS: BP 145/64
--- NOTE | 2020-05-11 18:32 | NUR ---
Problems reprioritized. Patient report given, questions answered & plan of care reviewed with BEATRIZ Joyce.
[2020-05-11 19:00] VITALS: BP 119/61
[2020-05-11] MEDS: magnesium hydroxide 30ml (MOM) UD suspension PO ONE ×2 (20:55→21:04)
[2020-05-11 23:00] VITALS: BP 134/73
[2020-05-12] MEDS: HYDROcodone/acetaminophen 10/325mg tab PO PRN ×5 (02:29→22:04)
[2020-05-12 03:00] VITALS: BP 136/70
--- NOTE | 2020-05-12 06:18 | NUR ---
Patient in room PCU 3008. I have received report from BEATRIZ Joyce and had the opportunity to ask questions and assume patient care.
[2020-05-12 06:55] VITALS: BP 123/75
[2020-05-12] MEDS: amLODIPine 5mg tablet PO SCH (07:08)
[2020-05-12] MEDS: heparin, porcine 5000 units/ml vial SQ SCH ×2 (07:10→20:00)
[2020-05-12] MEDS: losartan 25mg tablet PO SCH (07:10)
[2020-05-12] MEDS: magnesium hydroxide 30ml (MOM) UD suspension PO SCH (07:10)
[2020-05-12] MEDS: hydrOXYzine 25 MG tablet PO SCH ×2 (07:25→20:00)
[2020-05-12] MEDS: ipratropium/albuterol 3ml nebule NEB PRN ×4 (07:40→23:13)
[2020-05-12] MEDS: nicotine 21mg patch - 24 hr TD SCH (08:33)
[2020-05-12 11:00] VITALS: BP 123/71
[2020-05-12 15:00] VITALS: BP 133/76
[2020-05-12 18:00] VITALS: BP 141/85
--- NOTE | 2020-05-12 18:41 | NUR ---
Problems reprioritized. Patient report given, questions answered & plan of care reviewed with BEATRIZ North.
[2020-05-12] MEDS ORDERED: magnesium citrate 296ml oral solution PO ONE (20:15)
[2020-05-12 22:00] VITALS: BP 131/70
[2020-05-13 02:00] VITALS: BP 134/67
[2020-05-13] MEDS: HYDROcodone/acetaminophen 10/325mg tab PO PRN ×5 (02:35→21:52)
[2020-05-13 06:00] VITALS: BP 141/76
--- NOTE | 2020-05-13 06:21 | NUR ---
Patient in room PCU 3008. I have received report from larisa HENDERSON and had the opportunity to ask questions and assume patient care.
[2020-05-13] MEDS: losartan 25mg tablet PO SCH (07:45)
[2020-05-13] MEDS: magnesium hydroxide 30ml (MOM) UD suspension PO SCH (07:45)
[2020-05-13] MEDS: amLODIPine 5mg tablet PO SCH (07:46)
[2020-05-13] MEDS: heparin, porcine 5000 units/ml vial SQ SCH ×2 (07:47→20:06)
[2020-05-13] MEDS: nicotine 21mg patch - 24 hr TD SCH (07:47)
[2020-05-13] MEDS: hydrOXYzine 25 MG tablet PO SCH ×2 (07:55→20:00)
[2020-05-13 11:00] VITALS: BP 143/67
[2020-05-13] MEDS: ipratropium/albuterol 3ml nebule NEB PRN (11:05)
--- NOTE | 2020-05-13 11:32 | NUR ---
patient c/o SOB, RT paged x2. TMT given and instructions for patient to use IS, to cough and deep breathe. Patient compliant. moved from room 3008 to 3010.
--- NOTE | 2020-05-13 12:03 | NUR ---
[place] given for pain 02/04. Patient encouraged to use IS
[2020-05-13 15:00] VITALS: BP 132/3
--- NOTE | 2020-05-13 18:33 | NUR ---
patient seen by Dr nguyen, page made to nurse case manager for discharge planning. patient will need O2, and help figuring out where to live as was exposed to covid patient x3 days ago. Usually lives with 90yr old father. Responded well to RT tmt, using IS 1000cc. up ad jose g in room.[place] given for pain with effect. report given to Karen HENDERSON
--- NOTE | 2020-05-13 18:35 | NUR ---
Patient in room PCU 3010. I have received report from KATHY HENDERSON and had the opportunity to ask questions and assume patient care.
[2020-05-13 19:00] VITALS: BP 150/89
[2020-05-13 23:00] VITALS: BP 147/76
[2020-05-14] MEDS: HYDROcodone/acetaminophen 10/325mg tab PO PRN ×5 (02:47→23:45)
[2020-05-14 03:00] VITALS: BP 138/83
--- NOTE | 2020-05-14 06:30 | NUR ---
Problems reprioritized. Patient report given, questions answered & plan of care reviewed with RANJIT HENDERSON.
--- NOTE | 2020-05-14 06:41 | NUR ---
Patient in room PCU 3010. I have received report from GELY HONG RN and had the opportunity to ask questions and assume patient care.
[2020-05-14 07:00] VITALS: BP 144/77
[2020-05-14] MEDS: hydrOXYzine 25 MG tablet PO SCH ×2 (08:00→19:25)
[2020-05-14] MEDS: magnesium hydroxide 30ml (MOM) UD suspension PO SCH ×2 (08:00→19:18)
[2020-05-14] MEDS: nicotine 21mg patch - 24 hr TD SCH (08:01)
[2020-05-14] MEDS: amLODIPine 5mg tablet PO SCH (08:02)
[2020-05-14] MEDS: losartan 25mg tablet PO SCH (08:02)
[2020-05-14] MEDS: heparin, porcine 5000 units/ml vial SQ SCH ×2 (08:03→19:18)
[2020-05-14 11:00] VITALS: BP 141/79
[2020-05-14] MEDS: ipratropium/albuterol 3ml nebule NEB PRN (12:46)
[2020-05-14 15:00] VITALS: BP 141/77
--- NOTE | 2020-05-14 15:05 | NUR ---
Problems reprioritized. Patient report given, questions answered & plan of care reviewed with BEATRIZ FORD.
--- NOTE | 2020-05-14 15:30 | NUR ---
Received patient report from Della HENDERSON.
[2020-05-14 16:04] VITALS: BP 164/80
--- NOTE | 2020-05-14 16:07 | NUR ---
Patient arrived to room 340B. VSS. Patient oriented to room, call light, bed controls.
[2020-05-14 18:00] VITALS: BP_SYST 145; BP_SYST 148; BP_DIAS 52; BP_DIAS 75
--- NOTE | 2020-05-14 18:33 | NUR ---
Problems reprioritized. Patient report given, questions answered & plan of care reviewed with Libby HENDERSON.
--- NOTE | 2020-05-14 19:57 | NUR ---
Patient in room WES 340. I have received report from Ceci HENDERSON and had the opportunity to ask questions and assume patient care.
[2020-05-15] VITALS: BP 149/77
[2020-05-15] MEDS: HYDROcodone/acetaminophen 10/325mg tab PO PRN ×3 (05:16→20:27)
--- NOTE | 2020-05-15 06:10 | NUR ---
Problems reprioritized. Patient report given, questions answered & plan of care reviewed with Della HENDERSON.
--- NOTE | 2020-05-15 06:17 | NUR ---
Patient in room WES 340B. I have received report from BEATRIZ HYDE and had the opportunity to ask questions and assume patient care.
[2020-05-15 07:00] VITALS: BP 149/85
[2020-05-15] MEDS: magnesium hydroxide 30ml (MOM) UD suspension PO SCH ×4 (08:00→20:26)
[2020-05-15] MEDS: hydrOXYzine 25 MG tablet PO SCH ×3 (08:00→20:27)
[2020-05-15] MEDS: heparin, porcine 5000 units/ml vial SQ SCH ×2 (08:29→20:27)
[2020-05-15] MEDS: amLODIPine 5mg tablet PO SCH (08:30)
[2020-05-15] MEDS: losartan 25mg tablet PO SCH (08:31)
[2020-05-15] MEDS: nicotine 21mg patch - 24 hr TD SCH (08:41)
[2020-05-15 11:00] VITALS: BP 143/72
--- NOTE | 2020-05-15 15:39 | NUR ---
Initial: Pt s/p incisional hernia repair advanced to regular diet PO 75-100% avg meals this admit likely meeting needs. Abdominal pain noted post-op w/ LBM 05/14 receiving routine MoM and passing gas per surgeon note. Will continue to monitor for additional protein needs post-op. Rec: 1. continue regular diet 2. monitor for additional protein needs post-op 3. routine bowel care 4. wt per rx Addendum: 05/15/20 at [address] Amended: Links added.
--- NOTE | 2020-05-15 18:10 | NUR ---
Patient in room WES 340. I have received report from BEATRIZ Hull and had the opportunity to ask questions and assume patient care.
--- NOTE | 2020-05-15 18:15 | NUR ---
Problems reprioritized. Patient report given, questions answered & plan of care reviewed with BEATRIZ GALLEGOS.
[2020-05-15 19:09] VITALS: BP 150/82
[2020-05-15 23:29] VITALS: BP 134/69
[2020-05-16] MEDS: HYDROcodone/acetaminophen 10/325mg tab PO PRN ×2 (00:40→09:03)
--- NOTE | 2020-05-16 00:43 | NUR ---
nicotine patch removed per pt req. Unable to document as system is not allowing; too early for removal.
--- NOTE | 2020-05-16 06:25 | NUR ---
Problems reprioritized. Patient report given, questions answered & plan of care reviewed with BEATRIZ Stevens.
--- NOTE | 2020-05-16 06:30 | NUR ---
Patient in room WES 340. I have received report from BEATRIZ Paredes and had the opportunity to ask questions and assume patient care.
[2020-05-16 07:56] VITALS: BP 158/86
[2020-05-16] MEDS: magnesium hydroxide 30ml (MOM) UD suspension PO SCH ×2 (08:00)
[2020-05-16] MEDS: hydrOXYzine 25 MG tablet PO SCH (08:00)
[2020-05-16] MEDS: losartan 25mg tablet PO SCH (09:03)
[2020-05-16] MEDS: amLODIPine 5mg tablet PO SCH (09:04)
[2020-05-16] MEDS: heparin, porcine 5000 units/ml vial SQ SCH (09:06)
[2020-05-16] MEDS: nicotine 21mg patch - 24 hr TD SCH (09:10)
[2020-05-16 11:37] VITALS: BP 149/74
[2020-05-16] MEDS ORDERED: NICO-687 TD (13:04)
[2020-05-16] MEDS ORDERED: HYDR-4383 PO (13:04)
--- NOTE | 2020-05-16 13:39 | NUR ---
Upon discharge patient will be receiving a ride through her insurance. Patient asked if we could take her prescription downstairs to her father for him to take to the pharmacy. Patient states she won't be able to go to the pharmacy and would be asking her dad to come and picker and sorter load and unload the prescription. Patient stated she would inform us when he father is here.
--- NOTE | 2020-05-16 15:25 | NUR ---
Patient discharged home and taken from unit via wheelchair with x1 staff. Patient was alert, oriented and in no apparent distress at time of discharge. Patients discharge instructions were discussed with the patient at bedside by SN Lena and primary nurse as well. PIV removed with cannula intact. Patient medication was sent into [facility] on [address] except for the [place] prescription which was a written prescription given to the patient's father downstairs per patient request.
== END 2020-05-16 15:25 | disposition home or self-care (01) | DRG 227 ==
LOC: PAS 05:21 → SUR 3N 13:20 → UNDOADMOB 13:20 → PCU 3S 13:20 → SUR 3N 05-11 03:15 → PCU 3S 05-11 03:15 → PAS 05-11 20:30 → PCU 3S 05-11 20:30 → SUR 3N 05-14 15:20
PROVIDERS: ADMIT Surgery; ATTEND Surgery
PROC: 8E0W4CZ Robotic Assisted Procedure of Trunk Region, Percutaneous Endoscopic Approach (ICD-10-PCS; 2020-05-10)
PROC: 0WUF4JZ Supplement Abdominal Wall with Synthetic Substitute, Percutaneous Endoscopic Approach (ICD-10-PCS; principal; 2020-05-10 07:26)
DX: K43.2 Incisional hernia without obstruction or gangrene (principal); R09.02 Hypoxemia; Z20.828 Contact with and (suspected) exposure to other viral communicable diseases
CPT/HCPCS: 36415; 71045; 80053; 82948; 85025; 87635; 94640; 94760; A4215; A4618; C1758; C1781; C9290; G0378; J1100; J1644; J2001; J2250; J2270; J2405; J2704; J2710; J3010; J3480; J3490; J7120; Q0177

== ENCOUNTER 2020-06-06 00:59 | Inpatient (IN) | payer MEDICAID ==
[~2020-06-06] VITALS: Ht 160 cm; Wt 100.0 kg
[~2020-06-06 00:59] MED LIST changes: +HYDR-4383 PO; +NICO-687 TD; -ringers solution, lacted 1,000 ML IV SCH
[2020-06-06] MEDS ORDERED: normal saline 1000ML IV soln IVB ONE (01:10)
[2020-06-06] MEDS ORDERED: ondansetron/PF 4mg/2ml inj IV ONE ×2 (01:10→02:15)
[2020-06-06] MEDS ORDERED: fentaNYL/PF 50MCG/1 ML 2ML syringe ONE (01:12)
[2020-06-06 01:39] LABS: BASOPHILS # (AUTO) 0.1 X10'3 (0-0.2); EOSINOPHILS # (AUTO) 0.1 X10'3 (0-0.9); EOSINOPHILS % (AUTO) 0.5 % (0-6); HEMATOCRIT 44.8 % (35.0-45.0); HEMOGLOBIN 15.7 g/dl (12.0-16.0); LYMPHOCYTES # (AUTO) 1.6 X10'3 (1.1-4.8); LYMPHOCYTES % (AUTO) 10.5 % (21-51); MEAN CORPUSCULAR HEMOGLOBIN 32.2 PG (27.0-31.0); MEAN CORPUSCULAR VOLUME 92.2 FL (78-98); MEAN PLATELET VOLUME 7.7 FL (7.4-10.4); MONOCYTES # (AUTO) 0.4 X10'3 (0-0.9); MONOCYTES % (AUTO) 2.5 % (2-12); NEUTROPHILS # (AUTO) 12.9 X10'3 (1.8-7.7); NEUTROPHILS % (AUTO) 85.5 % (42-75); PLATELET COUNT 375 X10'3 (140-440); RED BLOOD COUNT 4.86 X10'6 (4.20-5.60); WHITE BLOOD COUNT 15.1 X10'3 (4.5-11.0)
[2020-06-06 01:56] LABS: ALANINE AMINOTRANSFERASE 42 U/L (12-78); ALBUMIN 3.8 G/DL (3.4-5.0); ALBUMIN/GLOBULIN RATIO 0.9 (1.1-1.5); ALKALINE PHOSPHATASE 112 IU/L (46-116); ANION GAP 9 (8-16); ASPARTATE AMINO TRANSFERASE 18 U/L (10-37); BILIRUBIN,TOTAL 0.7 MG/DL (0.1-1.0); BLOOD UREA NITROGEN 16 MG/DL (7-18); BUN/CREATININE RATIO 17.8 (6.6-38.0); CALCIUM 9.5 MG/DL (8.5-10.1); CHLORIDE 99 MMOL/L (99-107); GLUCOSE 155 MG/DL (70-104); LIPASE 82 U/L (73-393); POTASSIUM 3.7 MMOL/L (3.5-5.1); SODIUM 133 MMOL/L (135-145); TOTAL CARBON DIOXIDE 24.9 MMOL/L (24-32); TOTAL PROTEIN 7.9 G/DL (6.4-8.2); eGFR 65 ML/MIN
[2020-06-06] MEDS ORDERED: fentaNYL/PF 50MCG/1 ML 2ML syringe IV ONE (02:15)
[2020-06-06] MEDS: normal saline 1000ml 1,000 ML IV SCH ×3 (02:40→14:35)
[2020-06-06] MEDS ORDERED: acetaminophen 325mg tablet PO PRN ×2 (02:40)
[2020-06-06] MEDS ORDERED: HYDROcodone/acetaminophen 5mg/325mg tablet PO PRN (02:40)
[2020-06-06] MEDS ORDERED: magnesium 2GM in 50ml NS 50 ML IV PRN (02:40)
[2020-06-06] MEDS ORDERED: potassium Cl 20 mEq SR tablet PO PRN (02:40)
[2020-06-06] MEDS ORDERED: magnesium 4gm in 100ml NS 100 ML IV PRN (02:40)
[2020-06-06] MEDS ORDERED: morphine 2 MG/ML inj. syringe IV PRN (02:40)
[2020-06-06] MEDS ORDERED: potassium CL 10mEq/100ml bag 100 ML IV PRN ×2 (02:40)
[2020-06-06] MEDS ORDERED: magnesium Cl slow-release 64mg tablet PO PRN (02:40)
--- NOTE | 2020-06-06 02:41 | NUR ---
Diaz grier in EDM - 06/06/20 at 0416 by STACY PT IS MED WAIT. POTASSIUM AND MG INFUSING NOW. WILL BE DC READY ONCE INFUSION OVER
[2020-06-06 03:20] LABS: CLARITY,URINE CLEAR (Clear); COLOR,URINE YELLOW (Yellow); GLUCOSE, URINE NEGATIVE (Neg); KETONES,URINE NEGATIVE (Neg); LEUKOCYTE ESTERASE ,URINE NEGATIVE (Neg); NITRITES, URINE NEGATIVE (Neg); OCCULT BLOOD,URINE SMALL (Neg); PH,URINE 7.5 (4.8-8.0); PROTEIN,URINE NEGATIVE (Neg); UROBILINOGEN,URINE 0.2 E.U/dL (0.2-1.0)
[2020-06-06 03:30] LABS: URINE AMPHETAMINE SCREEN NEGATIVE (Neg); URINE BARBITUATE SCREEN NEGATIVE (Neg); URINE BENZODIAZEPINES SCREEN NEGATIVE (Neg); URINE CANNABINOID SCREEN NEGATIVE (Neg); URINE COCAINE SCREEN NEGATIVE (Neg); URINE METHADONE SCREEN NEGATIVE (Neg); URINE OPIATE SCREEN POSITIVE (Neg); URINE PHENCYCLIDINE SCREEN NEGATIVE (Neg)
[2020-06-06 03:32] LABS: UA COLLECTION TYPE CLN CATCH MIDSTREAM
[2020-06-06 03:33] LABS: BACTERIA,URINE FEW /HPF (Neg); SQUAMOUS EPITHELIAL CELL,UR FEW /LPF (FEW); WBC,URINE NONE SEEN /HPF (0-4)
--- NOTE | 2020-06-06 04:14 | NUR ---
Patient nausea not relieved by Zofran. Dr. Flowers paged requesting second line nausea medication.
[2020-06-06] MEDS ORDERED: metoclopramide 10mg tablet PO ONE (04:25)
[2020-06-06] MEDS ORDERED: metoclopramide 5 mg/ml inj IV ONE ×2 (04:25→16:55)
--- NOTE | 2020-06-06 06:34 | NUR ---
Received report from BEATRIZ Garnica. Awaiting patient arrival to room 346A.
[2020-06-06 07:00] VITALS: BP 167/94
--- NOTE | 2020-06-06 07:00 | NUR ---
Received patient to room 346A via [facility] [place]. Patient able to ambulate to bathroom and back to bed independently. NG to right nares present and to low intermittent suction Patient c/o being nauseated. NG appears to not be suctioning. Charge, RN Antonette in to check placement and flush NG. NG is now suctioning. Patient states she has relief from nausea at this time. Will continue to monitor.
[2020-06-06] MEDS: heparin, porcine 5000 units/ml vial SQ SCH ×2 (07:28→20:18)
[2020-06-06] MEDS: methylnaltrexone br 12mg/0.6ml inj***SubQ only SQ SCH (07:29)
[2020-06-06] MEDS: metroNIDAZOLE-Flagyl 500mg/NS 100 ML IV SCH ×2 (07:44→20:18)
[2020-06-06] MEDS: docusate sod 100mg capsule PO SCH ×2 (07:44→20:00)
[2020-06-06] MEDS: K and/or MAG REPLACEMENT MC SCH ×2 (08:00→20:00)
[2020-06-06] MEDS ORDERED: losartan 50mg tablet PO SCH (08:00)
[2020-06-06] MEDS: ondansetron/PF 4mg/2ml inj IV PRN ×3 (08:35→20:17)
--- NOTE | 2020-06-06 12:00 | NUR ---
patient states BM was large, hard, and brown. Addendum: 06/06/20 at 1206 by Carmelina ADAMSON Amended: Links added.
[2020-06-06 12:07] VITALS: BP 174/94
[2020-06-06] MEDS ORDERED: hydrALAZINE 20mg/ml inj. IV PRN (12:25)
--- NOTE | 2020-06-06 12:28 | NUR ---
Student documentation: I have reviewed and agree with all interventions, assessments performed and documented by Carmelina, clinical nursing manager.
--- NOTE | 2020-06-06 12:28 | NUR ---
DR. Plasencia notified of patient's systolic BP of 174 and also that patient has had large hard BM per patient. Dr. Plasencia is at bedside.
[2020-06-06] MEDS: HYDROcodone/acetaminophen 5mg/325mg tablet PO PRN (12:39)
[2020-06-06 14:12] VITALS: BP 150/82
[2020-06-06] MEDS ORDERED: diatr meglu/diatrizoate 30ml oral sol.-(3 dose) bottle PO ONE (16:55)
--- NOTE | 2020-06-06 17:20 | NUR ---
Gastroview given as ordered through NG tube. Patient tolerated well. NG clamped for 2 hours starting now. Reglan given as ordered after Gastroview administration.
--- NOTE | 2020-06-06 18:40 | NUR ---
Patient in room WES 346. I have received report from Kade HENDERSON and had the opportunity to ask questions and assume patient care.
--- NOTE | 2020-06-06 18:43 | NUR ---
Problems reprioritized. Patient report given, questions answered & plan of care reviewed with BEATRIZ HYDE.
[2020-06-06 20:00] VITALS: BP 168/88
[2020-06-06] MEDS ORDERED: temazepam 15mg capsule PO PRN (21:00)
[2020-06-06] MEDS ORDERED: HYDROmorphone inj. 0.5 MG/0.5 ML DISP.SYRIN IV PRN (23:20)
[2020-06-07] VITALS: BP 152/82
[2020-06-07] MEDS: normal saline 1000ml 1,000 ML IV SCH ×2 (01:54→12:58)
[2020-06-07 05:24] LABS: ALANINE AMINOTRANSFERASE 39 U/L (12-78); ALBUMIN 3.4 G/DL (3.4-5.0); ALBUMIN/GLOBULIN RATIO 0.9 (1.1-1.5); ALKALINE PHOSPHATASE 91 IU/L (46-116); ANION GAP 9 (8-16); ASPARTATE AMINO TRANSFERASE 14 U/L (10-37); BLOOD UREA NITROGEN 11 MG/DL (7-18); BUN/CREATININE RATIO 12.1 (6.6-38.0); CALCIUM 8.9 MG/DL (8.5-10.1); CHLORIDE 106 MMOL/L (99-107); CREATININE 0.91 MG/DL (0.40-0.90); GLUCOSE 108 MG/DL (70-104); MAGNESIUM 2.1 MG/DL (1.5-2.4); POTASSIUM 3.4 MMOL/L (3.5-5.1); SODIUM 140 MMOL/L (135-145); TOTAL CARBON DIOXIDE 24.7 MMOL/L (24-32); eGFR 64 ML/MIN
[2020-06-07 05:46] LABS: BASOPHILS % (AUTO) 0.6 % (0-1); EOSINOPHILS # (AUTO) 0.1 X10'3 (0-0.9); EOSINOPHILS % (AUTO) 1.5 % (0-6); HEMATOCRIT 42.6 % (35.0-45.0); HEMOGLOBIN 14.6 g/dl (12.0-16.0); LYMPHOCYTES # (AUTO) 2.2 X10'3 (1.1-4.8); LYMPHOCYTES % (AUTO) 33.5 % (21-51); MEAN CORPUSCULAR HGB CONC 34.2 g/dL (33.0-36.5); MEAN CORPUSCULAR VOLUME 93.5 FL (78-98); MONOCYTES # (AUTO) 0.4 X10'3 (0-0.9); MONOCYTES % (AUTO) 6.3 % (2-12); NEUTROPHILS # (AUTO) 3.8 X10'3 (1.8-7.7); NEUTROPHILS % (AUTO) 58.1 % (42-75); PLATELET COUNT 349 X10'3 (140-440); RED BLOOD COUNT 4.56 X10'6 (4.20-5.60); RED CELL DISTRIBUTION WIDTH 14.1 % (11.5-14.5); WHITE BLOOD COUNT 6.5 X10'3 (4.5-11.0)
--- NOTE | 2020-06-07 06:38 | NUR ---
Problems reprioritized. Patient report given, questions answered & plan of care reviewed with Kade HENDERSON.
--- NOTE | 2020-06-07 06:45 | NUR ---
Patient in room WES 346. I have received report from BEATRIZ Díaz and had the opportunity to ask questions and assume patient care.
--- NOTE | 2020-06-07 06:48 | NUR ---
Patient in room WES 346. I have received report from BEATRIZ Díaz and had the opportunity to ask questions and assume patient care.
[2020-06-07 07:00] VITALS: BP 166/85
[2020-06-07] MEDS: docusate sod 100mg capsule PO SCH ×2 (07:57→20:38)
[2020-06-07] MEDS: potassium Cl 20 mEq SR tablet PO PRN ×3 (07:58→20:49)
[2020-06-07] MEDS: amLODIPine 5mg tablet PO SCH (07:59)
[2020-06-07] MEDS ORDERED: losartan 50mg tablet PO SCH (08:00)
[2020-06-07] MEDS: HYDROcodone/acetaminophen 5mg/325mg tablet PO PRN ×2 (08:00→20:40)
[2020-06-07] MEDS: K and/or MAG REPLACEMENT MC SCH ×2 (08:00→20:00)
[2020-06-07] MEDS: heparin, porcine 5000 units/ml vial SQ SCH ×2 (08:03→20:40)
[2020-06-07] MEDS: metroNIDAZOLE-Flagyl 500mg/NS 100 ML IV SCH ×2 (08:03→20:42)
[2020-06-07] MEDS: losartan 50mg tablet PO SCH (08:22)
[2020-06-07] MEDS ORDERED: iohexol 300mg/ml 100ml inj. ONE (10:06)
--- NOTE | 2020-06-07 10:30 | NUR ---
Patient down in CT.
--- NOTE | 2020-06-07 11:00 | NUR ---
Patient back in room, resting comfortably.
[2020-06-07 11:23] VITALS: BP 123/69
--- NOTE | 2020-06-07 18:17 | NUR ---
Student documentation: I have reviewed and agree with all interventions, assessments performed and documented by SN Monalisa. Student Medication Administration: For this medication-pass time frame, all medication were reviewed, dispensed, administered and documented per hospital policy by SN Monalisa.
--- NOTE | 2020-06-07 18:17 | NUR ---
Problems reprioritized. Patient report given, questions answered & plan of care reviewed with BEATRIZ Díaz.
--- NOTE | 2020-06-07 18:18 | NUR ---
Problems reprioritized. Patient report given, questions answered & plan of care reviewed with BEATRIZ Díaz.
--- NOTE | 2020-06-07 18:50 | NUR ---
Patient in room WES 346. I have received report from Kade HENDERSON and had the opportunity to ask questions and assume patient care. Pt sitting up in bed working on dinner tray and watching tv. No signs of distress, will continue to monitor.
[2020-06-07 20:00] VITALS: BP 146/85
[2020-06-07 23:32] VITALS: BP 143/76
[2020-06-08] MEDS: normal saline 1000ml 1,000 ML IV SCH ×3 (00:47→19:09)
[2020-06-08 05:12] LABS: BASOPHILS # (AUTO) 0.1 X10'3 (0-0.2); BASOPHILS % (AUTO) 1.3 % (0-1); EOSINOPHILS # (AUTO) 0.2 X10'3 (0-0.9); HEMATOCRIT 38.7 % (35.0-45.0); HEMOGLOBIN 13.3 g/dl (12.0-16.0); LYMPHOCYTES # (AUTO) 2.4 X10'3 (1.1-4.8); LYMPHOCYTES % (AUTO) 38.7 % (21-51); MEAN CORPUSCULAR HEMOGLOBIN 32.3 PG (27.0-31.0); MEAN CORPUSCULAR HGB CONC 34.4 g/dL (33.0-36.5); MEAN CORPUSCULAR VOLUME 93.7 FL (78-98); MEAN PLATELET VOLUME 7.8 FL (7.4-10.4); MONOCYTES # (AUTO) 0.4 X10'3 (0-0.9); MONOCYTES % (AUTO) 6.2 % (2-12); NEUTROPHILS # (AUTO) 3.2 X10'3 (1.8-7.7); NEUTROPHILS % (AUTO) 50.8 % (42-75); PLATELET COUNT 293 X10'3 (140-440); RED BLOOD COUNT 4.13 X10'6 (4.20-5.60); RED CELL DISTRIBUTION WIDTH 13.9 % (11.5-14.5); WHITE BLOOD COUNT 6.3 X10'3 (4.5-11.0)
[2020-06-08 05:26] LABS: ALANINE AMINOTRANSFERASE 30 U/L (12-78); ALBUMIN/GLOBULIN RATIO 0.9 (1.1-1.5); ALKALINE PHOSPHATASE 79 IU/L (46-116); ANION GAP 9 (8-16); ASPARTATE AMINO TRANSFERASE 7 U/L (10-37); BILIRUBIN,TOTAL 0.9 MG/DL (0.1-1.0); BLOOD UREA NITROGEN 9 MG/DL (7-18); CALCIUM 8.6 MG/DL (8.5-10.1); CHLORIDE 110 MMOL/L (99-107); CREATININE 0.82 MG/DL (0.40-0.90); GLUCOSE 95 MG/DL (70-104); POTASSIUM 3.8 MMOL/L (3.5-5.1); SODIUM 143 MMOL/L (135-145); TOTAL CARBON DIOXIDE 24.1 MMOL/L (24-32); TOTAL PROTEIN 6.3 G/DL (6.4-8.2); eGFR 72 ML/MIN
--- NOTE | 2020-06-08 06:35 | NUR ---
Problems reprioritized. Patient report given, questions answered & plan of care reviewed with Kade HENDERSON.
--- NOTE | 2020-06-08 06:42 | NUR ---
Patient in room WES 346. I have received report from BEATRIZ Díaz and had the opportunity to ask questions and assume patient care.
--- NOTE | 2020-06-08 07:05 | NUR ---
Patient in room WES 346. I have received report from BEATRIZ Díaz and had the opportunity to ask questions and assume patient care.
[2020-06-08 08:00] VITALS: BP 156/79
[2020-06-08] MEDS: K and/or MAG REPLACEMENT MC SCH ×2 (08:00→18:59)
[2020-06-08] MEDS: methylnaltrexone br 12mg/0.6ml inj***SubQ only SQ SCH (08:39)
[2020-06-08] MEDS: heparin, porcine 5000 units/ml vial SQ SCH ×2 (08:42→19:12)
[2020-06-08] MEDS: docusate sod 100mg capsule PO SCH ×2 (08:43→19:11)
[2020-06-08] MEDS: amLODIPine 5mg tablet PO SCH (08:44)
[2020-06-08] MEDS: losartan 50mg tablet PO SCH (08:44)
[2020-06-08] MEDS: metroNIDAZOLE-Flagyl 500mg/NS 100 ML IV SCH ×2 (08:46→19:09)
[2020-06-08] MEDS: HYDROcodone/acetaminophen 5mg/325mg tablet PO PRN ×2 (10:37→22:41)
[2020-06-08 12:23] VITALS: BP 154/88
[2020-06-08 18:15] VITALS: BP 158/86
--- NOTE | 2020-06-08 18:25 | NUR ---
Problems reprioritized. Patient report given, questions answered & plan of care reviewed with BEATRIZ Zabala.
--- NOTE | 2020-06-08 18:28 | NUR ---
Patient in room WES 346. I have received report from BEATRIZ Braun and had the opportunity to ask questions and assume patient care.
[2020-06-09 00:05] VITALS: BP 156/77
[2020-06-09] MEDS: normal saline 1000ml 1,000 ML IV SCH (05:01)
[2020-06-09 05:05] LABS: BASOPHILS # (AUTO) 0.1 X10'3 (0-0.2); BASOPHILS % (AUTO) 1.4 % (0-1); EOSINOPHILS # (AUTO) 0.3 X10'3 (0-0.9); EOSINOPHILS % (AUTO) 4.9 % (0-6); HEMATOCRIT 39.7 % (35.0-45.0); HEMOGLOBIN 13.5 g/dl (12.0-16.0); LYMPHOCYTES # (AUTO) 2.3 X10'3 (1.1-4.8); LYMPHOCYTES % (AUTO) 35.1 % (21-51); MEAN CORPUSCULAR HEMOGLOBIN 31.5 PG (27.0-31.0); MEAN CORPUSCULAR VOLUME 92.6 FL (78-98); MEAN PLATELET VOLUME 7.7 FL (7.4-10.4); MONOCYTES # (AUTO) 0.4 X10'3 (0-0.9); MONOCYTES % (AUTO) 6.7 % (2-12); NEUTROPHILS # (AUTO) 3.3 X10'3 (1.8-7.7); NEUTROPHILS % (AUTO) 51.9 % (42-75); PLATELET COUNT 282 X10'3 (140-440); RED BLOOD COUNT 4.29 X10'6 (4.20-5.60); WHITE BLOOD COUNT 6.4 X10'3 (4.5-11.0)
[2020-06-09 05:14] LABS: ALANINE AMINOTRANSFERASE 32 U/L (12-78); ALBUMIN 3.1 G/DL (3.4-5.0); ALBUMIN/GLOBULIN RATIO 0.9 (1.1-1.5); ALKALINE PHOSPHATASE 81 IU/L (46-116); ANION GAP 10 (8-16); ASPARTATE AMINO TRANSFERASE 12 U/L (10-37); BILIRUBIN,TOTAL 0.9 MG/DL (0.1-1.0); BLOOD UREA NITROGEN 6 MG/DL (7-18); BUN/CREATININE RATIO 7.8 (6.6-38.0); CALCIUM 8.6 MG/DL (8.5-10.1); CHLORIDE 105 MMOL/L (99-107); CREATININE 0.77 MG/DL (0.40-0.90); GLUCOSE 92 MG/DL (70-104); MAGNESIUM 1.7 MG/DL (1.5-2.4); POTASSIUM 3.5 MMOL/L (3.5-5.1); SODIUM 136 MMOL/L (135-145); TOTAL CARBON DIOXIDE 21.1 MMOL/L (24-32); TOTAL PROTEIN 6.4 G/DL (6.4-8.2); eGFR 78 ML/MIN
[2020-06-09 06:30] VITALS: BP 164/78
--- NOTE | 2020-06-09 06:30 | NUR ---
Patient in room WES 346. I have received report from Sagrario Callahan RN and had the opportunity to ask questions and assume patient care.
--- NOTE | 2020-06-09 06:45 | NUR ---
Problems reprioritized. Patient report given, questions answered & plan of care reviewed with BEATRIZ Crook.
[2020-06-09] MEDS: docusate sod 100mg capsule PO SCH (07:24)
[2020-06-09] MEDS: losartan 50mg tablet PO SCH (07:25)
[2020-06-09] MEDS: amLODIPine 5mg tablet PO SCH (07:25)
[2020-06-09] MEDS: heparin, porcine 5000 units/ml vial SQ SCH (07:27)
[2020-06-09] MEDS: K and/or MAG REPLACEMENT MC SCH (08:00)
[2020-06-09] MEDS ORDERED: DOCU100C40 PO (11:05)
[2020-06-09 11:26] VITALS: BP 174/85
== END 2020-06-09 13:05 | disposition home or self-care (01) | DRG 247 ==
LOC: ER 01:00 → ED HOLD 02:37 → OBSVTOIN 02:37 → SUR 3N 07:06 → CMPBEDREQ 17:51
PROVIDERS: ADMIT Internal Medicine; ATTEND Family Medicine
PROC: 0D9670Z Drainage of Stomach with Drainage Device, Via Natural or Artificial Opening (ICD-10-PCS; principal; 2020-06-06)
PROC: BW211ZZ Computerized Tomography (CT Scan) of Abdomen and Pelvis using Low Osmolar Contrast (ICD-10-PCS; 2020-06-07)
DX: K56.609 Unspecified intestinal obstruction, unspecified as to partial versus complete obstruction (principal); D72.829 Elevated white blood cell count, unspecified; E86.0 Dehydration; G89.4 Chronic pain syndrome; I10 Essential (primary) hypertension; J45.909 Unspecified asthma, uncomplicated
CPT/HCPCS: 36415; 74176; 74177; 80053; 80305; 81001; 83605; 83690; 83735; 85025; 87040; 87081; 96374; 99285; G0378; J0360; J1644; J2212; J2270; J2405; J2765; J3010; J3480; J3490; J7030; Q9963; Q9967

== ENCOUNTER 2022-09-14 14:08 | Outpatient (CLI) | payer MEDICARE, MEDICAID ==
[~2022-09-14] VITALS: Ht 160 cm; Wt 95.7 kg
[~2022-09-14 14:08] MED LIST changes: +DOCU100C40 PO; -HYDR-3927 PO; -NICO-687 TD
[2022-09-14 14:33] LABS: TOTAL HEMOGLOBIN 17.6 G/dl (12.0-16.0)
[2022-09-14 14:44] LABS: ABG BASE EXCESS -1.5 mmol/L (-2.0-2.0); ABG HCO3 22.2 mmol/L (22.0-26.0); ABG OXYGEN SATURATION 96.1 % (94-97); ABG PCO2 (T) 34.9 mmHg (32.0-45.0); ABG PO2 (T) 76.7 mmHg (75.0-100.0); ALLEN'S TEST POSITIVE; FCOHb 3.7 % (0.0-3.9); FMetHb 0.3 % (0.0-1.5); FO2Hb 92.3 % (94-97); TOTAL HEMOGLOBIN 16.5 G/dl (12.0-16.0)
[2022-09-14] MEDS ORDERED: albuterol 2.5 MG/3 ML nebule NEB ONE (15:15)
== END 2022-09-14 23:59 | disposition home or self-care (01) ==
LOC: RT 14:08
PROVIDERS: ATTEND Internal Medicine Pulmonary Disease
DX: R94.2 Abnormal results of pulmonary function studies (principal); J98.4 Other disorders of lung; R06.02 Shortness of breath; F17.210 Nicotine dependence, cigarettes, uncomplicated; Z79.899 Other long term (current) drug therapy
CPT/HCPCS: 36600; 82803; 85018; 94060; 94727; 94729; 94760

== ENCOUNTER 2023-03-19 08:13 | Day surgery (SDC) | payer MEDICARE, MEDICAID ==
[2023-03-19] VITALS (13 sets, daily range): BP systolic 114–138; BP diastolic 61–131; PULSE 69–89; RESP 12–16; TEMP 98.4; O2SAT 90–95
[~2023-03-19] VITALS: Ht 160 cm; Wt 98.1 kg
[~2023-03-19 08:13] MED LIST changes: +CETI-90 PO; +DIAZ5TAB5 PO; -DOCU100C40 PO; +HYDR-3927 PO; -HYDR-4383 PO; +LIDOcaine 1% W/epiNEPHrine 1:100,000 20ml vial ONE; +cocaine 4% topical solution 4ml bottle ONE; +epiNEPHrine 1 mg/ml 30ml MDV ONE; +famotidine 20mg tablet PO ONE; +mupirocin 2% ointment 22GM ONE; +oxymetazoline 15 ML nasal spray NS ONE; +ringers solution, lacted 1,000 ML IV SCH; +tranexamic acid 100mg/ml inj. ONE; +tranexamic acid inj. 1,000 MG in normal saline IV soln 100ML IV ONE
--- NOTE | 2023-03-19 10:34 | NUR ---
DR CORCORAN IN TO SEE PT. PT WANTS TO KEEP HER FULL DENTURES IN FOR SURGERY. PT EDUCATED ON RISK OF LEAVING IN DENTURES INCLUDING POSSIBLE DAMAGE/BREAKAGE. PT STATES UNDERSTANDING AND STILL WANTS TO KEEP DENTURES IN.
[2023-03-19] MEDS ORDERED: meperidine/PF 25mg/ml syringe IV PRN ×3 (10:45)
[2023-03-19] MEDS ORDERED: proCHLORperazine 10 MG/2 ml inj IV PRN (10:45)
[2023-03-19] MEDS ORDERED: hydrALAZINE 20mg/ml inj. IV PRN (10:45)
[2023-03-19] MEDS ORDERED: acetaminophen 1,000mg/100ml IV 100 ML IV PRN (10:45)
[2023-03-19] MEDS ORDERED: ringers solution, lacted 1,000 ML IV SCH (10:45)
[2023-03-19] MEDS ORDERED: labetalol 20mg/4ml (5mg/ml) syringe IV PRN (10:45)
[2023-03-19] MEDS ORDERED: HYDROmorphone/PF 0.2 MG/ML SYRINGE IV PRN ×2 (10:45)
[2023-03-19] MEDS ORDERED: ondansetron/PF 4mg/2ml inj IV PRN (10:45)
[2023-03-19] MEDS ORDERED: sevoflurane 250ml liquid IH ONE (10:46)
[2023-03-19] MEDS ORDERED: fentaNYL/PF 50MCG/1 ML 2ML syringe ONE ×2 (10:49→11:38)
[2023-03-19] MEDS ORDERED: propofol inj 20 ML IV ONE ×2 (11:08→11:26)
[2023-03-19] MEDS ORDERED: midazolam 1 mg/ML 2ml injection ONE (11:08)
[2023-03-19] MEDS ORDERED: dexamethasone sod phosphate 4mg/ml inj. ONE (11:08)
[2023-03-19] MEDS ORDERED: LIDOcaine 2% (20mg/ml) 5ml vial ONE ×2 (11:08→11:26)
[2023-03-19] MEDS ORDERED: hydrALAZINE 20mg/ml inj. IV ONE (11:27)
[2023-03-19] MEDS ORDERED: mupirocin 2% nasal ointment 1gm UD NS ONE ×2 (11:27→11:55)
[2023-03-19] MEDS ORDERED: ondansetron/PF 4mg/2ml inj ONE (11:27)
[2023-03-19] MEDS ORDERED: salt irrigation nasal spray 45 ML SPRAY NS PRN (11:55)
--- NOTE | 2023-03-19 11:58 | NUR ---
Received from OR via RANDI, accompanied by Anesthesiologist and report given by JEWELL Anesthesiologist. PATIENT UNCONSCIOUS WITH ORAL AIRWAY, NO S/S OF PAIN, VSS, 20G PIV TO RIGHT HAND AND RIGHT FOOT, BILATERAL COTTONOID DRESSING C/D/I. Addendum: 03/19/23 at 1213 by John Lyon RN Amended: Links added.
--- NOTE | 2023-03-19 12:30 | NUR ---
PULLED BILATERAL COTTONOID DRESSING. NO S/S OF BLEEDING AT THIS TIME. ADMINISTERED OCEAN SPRAY AND MUPIROCIN IN BOTH NOSTRILS. NO S/S OF DISTRESS AT THIS TIME.
[2023-03-19] MEDS: ipratropium/albuterol 3ml nebule IH ONE ×2 (12:41→13:06)
--- NOTE | 2023-03-19 13:28 | NUR ---
ALL DISCHARGE CRITERIA HAS BEEN MET. VSS, PAIN AT A TOLERABLE LEVEL, VOIDING AND ABLE TO SAFELY AMBULATE AND TRANSFER SELF. IV TAKEN OUT WITHOUT ANY COMPLICATIONS. ALL DISCHARGE INSTRUCTIONS COVERED WITH PATIENT AND ALL QUESTIONS ANSWERED. PATIENT TAKEN OUT VIA WHEELCHAIR WITH ALL BELONGINGS TO PERSONAL VEHICLE WHERE FRIEND DROVE PATIENT HOME. Addendum: 03/19/23 at 1337 by John Lyon RN Amended: Links added.
--- NOTE | 2023-03-19 13:30 | NUR ---
PT UP AND DRESSED, ABLE TO VOID, VSS, DENIES ANY PAIN, PIV D/CD- CANNULA INTACT, DISCUSSED HOME CARE FOR NASAL IRRIGATION AND MEDICATIONS, PT USED OCEAN SPRAY AND OINTMENT BEFORE LEAVING, ALL QUESTIONS ANSWERED, FRESH GAUZE PLACE UNDER NOSE, PT TAKEN WITH SUPPLIES AND BELONGINGS TO VEHICLE, TRANSPORTED BY FRIEND HOME. Addendum: 03/19/23 at 1348 by John Lyon RN Amended: Links added.
== END 2023-03-19 13:28 | disposition home or self-care (01) ==
LOC: PAS 08:13
PROVIDERS: ATTEND Otolaryngology
DX: J34.2 Deviated nasal septum (principal); J34.3 Hypertrophy of nasal turbinates; J34.89 Other specified disorders of nose and nasal sinuses; G47.33 Obstructive sleep apnea (adult) (pediatric); I10 Essential (primary) hypertension; J44.9 Chronic obstructive pulmonary disease, unspecified; M13.88 Other specified arthritis, other site; Z87.891 Personal history of nicotine dependence; Z88.5 Allergy status to narcotic agent; Z91.018 Allergy to other foods; Z90.49 Acquired absence of other specified parts of digestive tract; Z98.41 Cataract extraction status, right eye; Z98.42 Cataract extraction status, left eye; Z98.890 Other specified postprocedural states; Z79.899 Other long term (current) drug therapy
CPT/HCPCS: 30140; 30520; 31240; 61782; 82948; 93005; 94640; A6402; J0171; J0360; J1100; J2250; J2405; J2704; J3010; J3490; J7030; J7120; Z7506; Z7508; Z7512; A4618; A6449; A7000

== ENCOUNTER 2023-04-03 10:26 | Emergency (ER) | payer MEDICARE, MEDICAID ==
[~2023-04-03] VITALS: Ht 160 cm; Wt 95.5 kg
[~2023-04-03 10:26] MED LIST changes: -LIDOcaine 1% W/epiNEPHrine 1:100,000 20ml vial ONE; -cocaine 4% topical solution 4ml bottle ONE; -epiNEPHrine 1 mg/ml 30ml MDV ONE; -famotidine 20mg tablet PO ONE; -mupirocin 2% ointment 22GM ONE; -oxymetazoline 15 ML nasal spray NS ONE; -ringers solution, lacted 1,000 ML IV SCH; -tranexamic acid 100mg/ml inj. ONE; -tranexamic acid inj. 1,000 MG in normal saline IV soln 100ML IV ONE
[2023-04-03] MEDS ORDERED: HYDROcodone/acetaminophen 10/325mg tab PO ONE (11:45)
[2023-04-03 12:01] LABS: BASOPHILS # (AUTO) 0.1 X10'3 (0-0.2); MEAN CORPUSCULAR HEMOGLOBIN 32.5 PG (27.0-31.0); NEUTROPHILS # (AUTO) 6.9 X10'3 (1.8-7.7)
[2023-04-03 12:02] LABS: BASOPHILS % (AUTO) 0.9 % (0-1); EOSINOPHILS # (AUTO) 0.1 X10'3 (0-0.9); EOSINOPHILS % (AUTO) 1.4 % (0-6); HEMATOCRIT 44.1 % (35.0-45.0); HEMOGLOBIN 15.5 g/dl (12.0-16.0); LYMPHOCYTES # (AUTO) 2.5 X10'3 (1.1-4.8); LYMPHOCYTES % (AUTO) 24.6 % (21-51); MEAN CORPUSCULAR HGB CONC 35.1 g/dL (33.0-36.5); MEAN CORPUSCULAR VOLUME 92.7 FL (78-98); MEAN PLATELET VOLUME 7.6 FL (7.4-10.4); MONOCYTES # (AUTO) 0.4 X10'3 (0-0.9); MONOCYTES % (AUTO) 4.2 % (2-12); NEUTROPHILS % (AUTO) 68.9 % (42-75); PLATELET COUNT 272 X10'3 (140-440); RED BLOOD COUNT 4.76 X10'6 (4.20-5.60); RED CELL DISTRIBUTION WIDTH 13.8 % (11.5-14.5)
--- NOTE | 2023-04-03 12:03 | NUR ---
pt to ct
[2023-04-03 12:32] LABS: ALANINE AMINOTRANSFERASE 24 U/L (12-78); ALBUMIN 3.4 G/DL (3.4-5.0); ALBUMIN/GLOBULIN RATIO 0.9 (1.1-1.5); ALKALINE PHOSPHATASE 100 IU/L (46-116); ANION GAP 9 (8-16); ASPARTATE AMINO TRANSFERASE 11 U/L (10-37); BILIRUBIN,TOTAL 0.6 MG/DL (0.1-1.0); BLOOD UREA NITROGEN 6 MG/DL (7-18); BUN/CREATININE RATIO 7.9 (10.0-20.0); CALCIUM 9.1 MG/DL (8.5-10.1); CHLORIDE 103 MMOL/L (99-107); CREATININE 0.76 MG/DL (0.40-0.90); GLUCOSE 101 MG/DL (70-104); POTASSIUM 3.7 MMOL/L (3.5-5.1); SODIUM 136 MMOL/L (135-145); TOTAL CARBON DIOXIDE 24.5 MMOL/L (24-32); TOTAL PROTEIN 7.3 G/DL (6.4-8.2); eCRCL 67 ML/MIN; eGFR 78 ML/MIN
--- NOTE | 2023-04-03 13:14 | NUR ---
pt went outside to smoke
[2023-04-03 13:22] LABS: BILIRUBIN,URINE NEGATIVE (Neg); CLARITY,URINE CLEAR (Clear); COLOR,URINE YELLOW (Yellow); GLUCOSE, URINE NEGATIVE (Neg); KETONES,URINE NEGATIVE (Neg); LEUKOCYTE ESTERASE ,URINE NEGATIVE (Neg); NITRITES, URINE NEGATIVE (Neg); OCCULT BLOOD,URINE TRACE-INTACT (Neg); PH,URINE 7.5 (4.8-8.0); PROTEIN,URINE NEGATIVE (Neg); UA COLLECTION TYPE CLN CATCH MIDSTREAM; UROBILINOGEN,URINE 0.2 E.U/dL (0.2-1.0)
[2023-04-03 13:39] LABS: BACTERIA,URINE NONE SEEN /HPF (Neg); RBC,URINE 0-2 /HPF (0-2); SQUAMOUS EPITHELIAL CELL,UR FEW /LPF (FEW); WBC,URINE NONE SEEN /HPF (0-4)
[2023-04-03] MEDS ORDERED: azithromycin 250mg tablet PO ONE (13:50)
[2023-04-03] MEDS ORDERED: CefTRIAXone 250MG inj IM ONE (13:50)
[2023-04-03] MEDS ORDERED: CefTRIAXone 500MG IM Kit w/LIDOcaine IM ONE (13:55)
[2023-04-03] MEDS ORDERED: METR-159 PO (13:56)
[2023-04-03] MEDS ORDERED: HYDR-3965 PO (13:56)
[2023-04-03] MEDS ORDERED: DOXY-1 PO (13:56)
[2023-04-03 14:32] VITALS: BP 167/87; PULSE 76; RESP 16; O2SAT 93
[2023-04-06 09:36] LABS: CHLAMYDIA TRACHOMATIS, NAA Negative (Negative)
== END 2023-04-03 14:33 | disposition home or self-care (01) ==
LOC: ER 10:26
DX: N73.0 Acute parametritis and pelvic cellulitis (principal); M54.32 Sciatica, left side
CPT/HCPCS: 36415; 74176; 76830; 76856; 80053; 81001; 85025; 87491; 87591; 93976; 96372; 99285; J0696

== ENCOUNTER 2024-10-31 18:11 | Emergency (ER) | payer MEDICARE, MEDICAID ==
[~2024-10-31] VITALS: Ht 157.5 cm; Wt 92.9 kg
[2024-10-31 18:15] VITALS: BP 157/86; PULSE 80; O2SAT 97
[2024-10-31] MEDS ORDERED: HYDR-3972 PO (20:51)
[2024-10-31] MEDS ORDERED: ONDA-243 PO (20:51)
[2024-10-31 21:09] VITALS: RESP 16
[2024-10-31] MEDS: HYDROcodone/acetaminophen 5mg/325mg tablet PO ONE (21:09)
[2024-10-31] MEDS: ondansetron 4mg rapidly disintigrating tab PO ONE (21:10)
[2024-10-31 21:35] VITALS: TEMP 97.2
== END 2024-10-31 21:38 | disposition home or self-care (01) ==
LOC: ER 18:12
DX: S93.401A Sprain of unspecified ligament of right ankle, initial encounter (principal); I10 Essential (primary) hypertension; J45.909 Unspecified asthma, uncomplicated; Z88.5 Allergy status to narcotic agent; Z90.49 Acquired absence of other specified parts of digestive tract; Z98.890 Other specified postprocedural states; W19.XXXA Unspecified fall, initial encounter; Y93.89 Activity, other specified; Y92.89 Other specified places as the place of occurrence of the external cause; Y99.8 Other external cause status
CPT/HCPCS: 73610; 99283; L4360